=== PATIENT | male | born 1960 | race Caucasian/White ===

== ENCOUNTER → 2017-02-05 | Outpatient (CLI) | payer OTHER ==
[~2017-02-05] MED LIST: ASPI1TAB83 PO; ATOR-22 PO; CARV3.122 PO; CINN1CAP2 PO; DIGO0.122 PO; FENO145T26 PO; GLIM2TAB2 PO; LISI-729 PO; OMEGCAP2 PO; SITA50TA PO
[2017-02-05 12:59] LABS: ALT/SGPT 28 U/L (12-78); BLOOD UREA NITROGEN 17 mg/dl (7-18); CALCIUM 8.6 mg/dl (8.5-10.1); CARBON DIOXIDE 30 mmol/L (21-32); CHLORIDE 105 mmol/L (98-107); CREATININE 0.93 mg/dl (0.60-1.40); GLUCOSE 188 mg/dl (70-99); POTASSIUM 3.9 mmol/L (3.5-5.1); SODIUM 140 mmol/L (136-145)
[2017-02-05 13:04] LABS: CHOLESTEROL 132 mg/dl (0-200); CHOLESTEROL/HDL RATIO 4.1; HDL CHOLESTEROL 32 mg/dl; LDL CHOLESTEROL CALCULATED 77 mg/dl; TRIGLYCERIDES 113 mg/dl (0-150); VERY LOW DENSITY LIPOPROT CALC 23 mg/dl
[2017-02-05 13:21] LABS: ESTIMATED AVERAGE GLUCOSE 174 mg/dl; HA1C FLAG Normal (Normal)
== END | disposition home or self-care (01) ==
LOC: C.LABPBG 10:35
PROVIDERS: ATTEND Family Medicine
DX: E11.9 Type 2 diabetes mellitus without complications (principal)

== ENCOUNTER → 2017-07-20 | Outpatient (CLI) | payer OTHER ==
[2017-07-20 13:14] LABS: ESTIMATED AVERAGE GLUCOSE 177 mg/dl; HA1C FLAG Normal (Normal)
[2017-07-20 17:09] LABS: ALT/SGPT 43 U/L (12-78); BLOOD UREA NITROGEN 22 mg/dl (7-18); CARBON DIOXIDE 29 mmol/L (21-32); CHLORIDE 104 mmol/L (98-107); CHOLESTEROL 149 mg/dl (0-200); CREATININE 0.98 mg/dl (0.60-1.40); GLUCOSE 136 mg/dl (70-99); POTASSIUM 3.7 mmol/L (3.5-5.1); SODIUM 139 mmol/L (136-145); TRIGLYCERIDES 137 mg/dl (0-150); VERY LOW DENSITY LIPOPROT CALC 27 mg/dl
[2017-07-20 17:14] LABS: CHOLESTEROL/HDL RATIO 4.8; HDL CHOLESTEROL 31 mg/dl; LDL CHOLESTEROL CALCULATED 91 mg/dl
[2017-07-20 17:31] LABS: RATIO 4.3 mcg/mg (0-30.0)
== END | disposition home or self-care (01) ==
LOC: C.LABPBG 11:13
PROVIDERS: ATTEND Family Medicine
DX: E11.9 Type 2 diabetes mellitus without complications (principal)

== ENCOUNTER → 2017-10-22 | Outpatient (CLI) | payer OTHER ==
[2017-10-22 17:39] LABS: BASO % 0.3 %; BASO ABS # 0.02 K/uL (0-0.2); COMPLETE YES; EOS % 2.1 %; HEMATOCRIT 44.7 % (42-52); IG% 0.5 %; LYMPH % 29.4 %; LYMPH ABS # 1.84 K/uL (1.2-3.4); MEAN CELL VOLUME 89.4 fL (80-100); MEAN CORPUSCULAR HEMOGLOBIN 31.4 pg (25-34); MEAN CORPUSCULAR HGB CONC 35.1 g/dl (32-36); MEAN PLATELET VOLUME 9.4 fL (7.4-10.4); MONO % 7.2 %; NEUT % 60.5 %; PLATELET COUNT 186 K/uL (130-400); WHITE BLOOD COUNT 6.25 K/uL (4.8-10.8)
[2017-10-22 17:47] LABS: BLOOD UREA NITROGEN 17 mg/dl (7-18); BUN/CREATININE RATIO 17.8 (10-20); CALCIUM 8.9 mg/dl (8.5-10.1); CARBON DIOXIDE 26 mmol/L (21-32); CHLORIDE 107 mmol/L (98-107); CREATININE 0.95 mg/dl (0.60-1.40); GLUCOSE 163 mg/dl (70-99); SODIUM 140 mmol/L (136-145)
[2017-10-22 17:54] LABS: FERRITIN 336.5 ng/ml (8.0-388.0)
[2017-10-23 07:40] LABS: ESTIMATED AVERAGE GLUCOSE 143 mg/dl; HA1C FLAG Normal (Normal)
== END | disposition home or self-care (01) ==
LOC: C.LABPBG 13:14
PROVIDERS: ATTEND Internal Medicine Cardiovascular Disease
DX: E11.9 Type 2 diabetes mellitus without complications (principal); E83.119 Hemochromatosis, unspecified; I42.8 Other cardiomyopathies; Z51.81 Encounter for therapeutic drug level monitoring; Z79.899 Other long term (current) drug therapy

== ENCOUNTER 2025-03-20 11:37 | Inpatient (IN) ==
--- NOTE | 2025-03-20 12:15 | Emergency Department Note ---
Impression & Plan Pneumonia, CHF (congestive heart failure), NYHA class III, Shortness of breath ED Provider Note NAME: ANTONIO BLANCO AGE: 64 SEX: M : 1960 ARRIVES VIA: Walk-In INFORMANT: Patient ED PROVIDER(S): Frank Desai DO CHIEF COMPLAINT: Shortness of breath HPI: Patient is a 64-year-old male with a past medical history of CHF, diabetes, hypertension, idiopathic cardiomyopathy who presents to the ER for shortness of breath which has been getting worse for the past week. Patient denies any headache or change in vision. Shortness of breath significantly worsens with laying flat. He also admits to a cough which started within the past week. It is dry. No fevers. He does not really notice it when he is up moving around. No chest pain. No belly pain. No swelling of the calfs. Notes he did just recently start his Lasix back about 2 weeks ago when he saw cardiology again. He stopped taking it as he ran out of money. No dysuria, urgency or frequency. No other exacerbating or remitting factors. ADDITIONAL HISTORY OBTAINED: Per HPI Chronic Medical/Social Conditions Affecting Care: Per HPI PAST MEDICAL HISTORY:See Below PAST SURGICAL HISTORY:See Below FAMILY HISTORY:See Below SOCIAL HISTORY:See Below HOME MEDICATIONS:See Below ALLERGIES:See Below VITALS:See Below PHYSICAL EXAMINATION: GENERAL: Sitting up in bed, alert, well appearing, well nourished, no distress, non-toxic EYE EXAM: normal conjunctiva. PERRL and EOM's grossly intact. OROPHARYNX: no exudate, no erythema, lips, buccal mucosa, and tongue normal and mucous membranes are moist NECK: supple, no nuchal rigidity, no adenopathy, non-tender LUNGS: Clear to auscultation. Normal chest wall mechanics HEART: no murmurs, S1 normal and S2 normal ABDOMEN: abdomen soft, non-tender, normo-active bowel sounds, no masses, no rebound or guarding. UPPER EXTREMITIES: upper extremities are grossly normal. LOWER EXTREMITIES: No pitting edema. NEURO EXAM: Normal sensorium, cranial nerves II-XII grossly intact, normal speech, no gross weakness of arms, no gross weakness of legs. MEDICAL DECISION MAKING: Patient is a 64-year-old male who presents to the ER for the above-stated complaint. IV was established and blood work was obtained. Labs show no significant leukocytosis or anemia. BMP with slightly elevated glucose of 236. LFTs and bilirubin are fairly unremarkable. Troponin negative. BNP elevated at 1400. Lipase and Pro-Bill were normal. Chest x-ray with a right lower lobe infiltrate. Patient was given IV Rocephin and azithromycin. Updated bedside. Discussed case with the hospitalist admitted for further workup of his shortness of breath likely secondary to pneumonia and CHF. Consults/Care Managements Discussions: Per [facility] Triage Nursing notes reviewed. Limited review of prior medical records performed Vital Signs: reviewed and remarkable for no significant abnormalities Differential diagnosis: Differential diagnoses includes but is not limited to pneumonia, bronchitis, COPD/Asthma exacerbation, pneumothorax, pulmonary embolism, congestive heart failure, acute coronary syndrome ER treatment provided: See below Diagnostics interpreted by me include EKG and cardiac monitoring as listed below: -Cardiac Monitoring: An order was placed for continuous cardiac monitoring. The monitor shows a rate of 101 with sinus rhythm. -ECG: Sinus tachycardia rate of 102 Normal axis No PVCs ST depressions and T wave inversions in the lateral leads as well as the inferior leads QTc 505 -Laboratory studies:Interpreted by me as stated above in MDM and shown below. Imaging studies: Xrays: As interpreted by me: Portable AP upright 1 view of the chest shows right lower lobe infiltrate CTs show: none Procedures:none Critical Care: None Past Med/Surg History Problem List Shortness of breath (Acute) Pneumonia (Acute) History of colon polyps Encounter for pre-operative examination CHF (congestive heart failure), NYHA class III (Acute) Dyslipidemia Hemochromatosis Hypertension Type II diabetes mellitus Idiopathic cardiomyopathy CAD (coronary artery disease) Pulmonary HTN Ventricular tachycardia Cardiac defibrillator in place Implantable cardioverter-defibrillator (ICD) at end of battery life Medical History Pulmonary HTN CHF (congestive heart failure), NYHA class III Hypertension Ventricular tachycardia reason for pacer Type II diabetes mellitus Dyslipidemia Hemochromatosis CAD (coronary artery disease) follows with Dr. Villarreal Surgical History Hx of vasectomy History of colonoscopy History of tooth extraction History of arthroscopy left shoulder ICD (implantable cardioverter-defibrillator) in place 2009, replaced battery approx 1 year ago, follows with Dr. Villarreal, [employer], last checked approx 2 mos ago over phone Family History Father No problems noted. Mother Diabetes Social History Smoking Status: Never smoker Second Hand Exposure: No; Do You Dip or Chew Tobacco: No; Hx Alcohol Use: No Hx Substance Use: No Preferred Language: Maltese Communication Ability: Effective Visual Impairment: No Limitations Hearing Ability: Normal Recreation Therapist Required: No Beliefs That Will Affect Care: None marital status: Current Living Situation: Spouse current occupational status: employed Feels Safe at Home: Yes Childhood Exposure to Second-Hand Smoke: No Diet: regular Dental Care, Regularly: Yes Physical Activity Frequency: Daily Seatbelt Use: always Sunscreen Use: Yes Assistive Devices: Glasses Allergies Allergies Allergy/AdvReac Type Severity Reaction Status Date / Time No Known Allergies Allergy Verified 03/20/25 14:42 Home Meds Home Medications Medication Instructions Recorded Confirmed aspirin 81 mg chewable tablet 81 mg PO QAM 09/30/19 03/20/25 atorvastatin 40 mg tablet 40 mg PO QAM 03/20/25 03/20/25 furosemide 20 mg tablet 20 mg PO QAM 03/20/25 03/20/25 metoprolol succinate 25 mg 12.5 mg PO QAM 03/20/25 03/20/25 tablet,extended release 24 hr spironolactone 25 mg tablet 12.5 mg PO QAM 03/20/25 03/20/25 Previous Rx's Medication Instructions Recorded blood sugar diagnostic (OneTouch #100 ea 06/01/22 Verio test strips) blood-glucose meter (OneTouch #1 ea 06/01/22 Verio Meter) lancets (OneTouch UltraSoft #100 ea 06/01/22 Lancets) Results & Data (ED) Vital Signs Vital Signs - 24 hr 03/20/25 11:38 03/20/25 11:38 03/20/25 11:47 Temperature 36.0 C L Temperature Source Skin Pulse Rate 99 H Pulse Rate [Left Apical] Pulse Rate from SpO2 Sensor Respiratory Rate 20 Respiratory Effort / Characteristics Respiratory Depth Respiratory Pattern Blood Pressure 107/68 Blood Pressure [Right Arm] Blood Pressure Mean 81 Blood Pressure Mean [Right Arm] Pulse Oximetry 96 Oxygen Delivery Method Room Air Room Air Room Air Sepsis Recent Fever Within 48 Hours No Sepsis New/Unexplained Change in Mental Status N/A Sepsis Action Taken by Nursing No Action Required 03/20/25 12:37 03/20/25 12:48 03/20/25 13:03 Temperature Temperature Source Pulse Rate 102 H 90 88 Pulse Rate [Left Apical] Pulse Rate from SpO2 Sensor 92 H 89 Respiratory Rate 19 18 Respiratory Effort / Characteristics Respiratory Depth Respiratory Pattern Blood Pressure Blood Pressure [Right Arm] Blood Pressure Mean Blood Pressure Mean [Right Arm] Pulse Oximetry 96 94 Oxygen Delivery Method Sepsis Recent Fever Within 48 Hours Sepsis New/Unexplained Change in Mental Status Sepsis Action Taken by Nursing 03/20/25 14:00 03/20/25 15:36 Temperature Temperature Source Pulse Rate 93 H Pulse Rate [Left Apical] 89 Pulse Rate from SpO2 Sensor 91 H Respiratory Rate 23 21 Respiratory Effort / Characteristics Spontaneous Short of Breath Respiratory Depth Normal Respiratory Pattern Regular Blood Pressure 110/79 Blood Pressure [Right Arm] 95/72 L Blood Pressure Mean 89 Blood Pressure Mean [Right Arm] 79 Pulse Oximetry 94 95 Oxygen Delivery Method Room Air Sepsis Recent Fever Within 48 Hours Sepsis New/Unexplained Change in Mental Status Sepsis Action Taken by Nursing Laboratory Data 03/20/25 12:18 03/20/25 12:18 Lab Results 03/20/25 Range/Units 12:18 WBC 8.18 (4.8-10.8) K/ul RBC 5.35 (4.70-6.10) M/uL Hgb 16.1 (14.0-18.0) g/dl Hct 44.5 (42.0-52.0) % MCV 83.2 (80.0-100.0) fL MCH 30.1 (25.0-34.0) pg MCHC 36.2 H (32.0-36.0) g/dL RDW Std Deviation 37.8 (36.4-46.3) fL RDW Coeff of Hernandez 12.6 (11.5-14.5) % Plt Count 170 (130-400) K/uL MPV 9.3 L (9.4-12.4) fL Immature Gran % (Auto) 0.4 % Neut % (Auto) 76.3 % Lymph % (Auto) 14.7 % Dent % (Auto) 7.1 % Eos % (Auto) 1.0 % Baso % (Auto) 0.5 % Neut # (Auto) 6.25 (1.40-6.50) K/uL Lymph # (Auto) 1.20 (1.20-3.40) K/uL Dent # (Auto) 0.58 (0.11-0.59) K/uL Eos # (Auto) 0.08 (0.00-0.50) K/uL Baso # (Auto) 0.04 (0.00-0.20) K/uL Immature Gran # (Auto) 0.03 (0.01-0.20) K/uL Sodium 138 (136-145) mmol/L Potassium 3.7 (3.5-5.1) mmol/L Chloride 106 (98-107) mmol/L Carbon Dioxide 25 (21-32) mmol/L Anion Gap 7 (3-11) BUN 16 (6-23) mg/dl Creatinine 0.73 (0.6-1.4) mg/dl Est Cr Clr Drug Dosing 94.3 ml/min eGFR 101.60 BUN/Creatinine Ratio 21.9 H (10-20) Glucose 236 H (70-99(Fasting)) mg/dl Calcium 8.9 (8.6-10.3) mg/dl Total Bilirubin 2.0 H (0.2-1.0) mg/dl AST 12 L (13-39) U/L ALT 16 (7-52) U/L Alkaline Phosphatase 85 (34-104) U/L Troponin I High Sens 19.0 (0-20) pg/ml C-Reactive Protein < 0.50 (0-0.5) mg/dl B-Natriuretic Peptide 1454 H (0-100) pg/ml Total Protein 6.3 (6.0-8.3) gm/dl Albumin 3.9 (3.4-5.0) gm/dl Globulin 2.4 L (2.5-4.0) gm/dl Albumin/Globulin Ratio 1.6 (0.9-2) Lipase 13 (11-82) U/L Procalcitonin < 0.02 (0-0.5) ng/ml Administered Medications Discontinued Medications Azithromycin (Azithromycin 250 Mg Tab) 500 mg PO NOW ONE Stop: 03/20/25 13:32 Last Admin: 03/20/25 13:44 Dose: 500 mg Documented By: AXELW Ceftriaxone Sodium (Rocephin) 2,000 mg in 50 mls @ 100 mls/hr IV NOW STA Stop: 03/20/25 14:00 Last Infusion: 03/20/25 15:31 Dose: Infused Documented By: [facility] Admin: 03/20/25 13:44 Dose: 100 mls/hr Documented By: AXELW Imaging Data Radiologist's Impression: Chest X-Ray 03/20/25 11:56 XR chest 1V portable CLINICAL HISTORY: Chest pain, nonspecific COMPARISON STUDY: 03/29/2016 FINDINGS: Stable left pacemaker. There is increased cardiomegaly with mild pulmonary vascular congestion. There is interval hazy opacity in the lung bases with blunting of the left costophrenic angle. No pneumothorax. IMPRESSION: CHF with small bilateral pleural effusions and associated lower lung consolidation. ACT 112: Negative or not required by law. Electronically signed by: Lowell Almanza M.D. 03/20/2025 12:57 PM Discharge Plan Visit Data Chief Complaint: Shortness of Breath/Dyspnea Stated Complaint: SHORT OF BREATH ED Provider: Frank Desai Discharge Problem: Pneumonia, CHF (congestive heart failure), NYHA class III, Shortness of breath Patient Disposition: Admitted As Inpatient Condition: Fair Discharge Instructions Interventions: ED Discharge Assessment Last Done: 03/20/25 15:44 Prescriptions Prescriptions: No Action (DME) blood-glucose meter [OneTouch Verio Meter] [facility] See Rx Instructions .Route Qty: 1 0RF Rx Instructions: Test BID, fasting glucose in AM, and before evening meal (DME) OneTouch Verio test strips Strip See Rx Instructions .Route Qty: 100 3RF Rx Instructions: Test glucose BID, fasting AM and before evening meal (DME) lancets [OneTouch UltraSoft Lancets] Misc See Rx Instructions .Route Qty: 100 3RF Rx Instructions: Test glucose BID, fasting AM and before evening meal aspirin 81 mg Tablet,Chewable 81 mg PO QAM spironolactone 25 mg tablet 12.5 mg PO QAM furosemide 20 mg tablet 20 mg PO QAM metoprolol succinate 25 mg tablet extended release 24 hr 12.5 mg PO QAM atorvastatin 40 mg tablet 40 mg PO QAM Discharge Problem: Pneumonia Qualifiers: Pneumonia type: due to unspecified organism Laterality: unspecified laterality Lung location: unspecified part of lung Qualified Code(s): J18.9 - Pneumonia, unspecified organism CHF (congestive heart failure), NYHA class III Qualifiers: Congestive heart failure type: unspecified Qualified Code(s): I50.9 - Heart failure, unspecified
[2025-03-20 12:37] LABS: Basophils # (auto) 0.04 K/uL (0.00-0.20); Basophils % (auto) 0.5 %; Eosinophils # (auto) 0.08 K/uL (0.00-0.50); Hematocrit (blood only) 44.5 % (42.0-52.0); Hemoglobin 16.1 g/dl (14.0-18.0); Immature Granulocytes # (auto) 0.03 K/uL (0.01-0.20); Immature Granulocytes % (auto) 0.4 %; Lymphocytes % (auto) 14.7 %; Mean Corpuscular Hemoglobin 30.1 pg (25.0-34.0); Mean Corpuscular Hgb Conc 36.2 g/dL (32.0-36.0); Mean Corpuscular Volume 83.2 fL (80.0-100.0); Mean Platelet Volume 9.3 fL (9.4-12.4); Monocytes # (auto) 0.58 K/uL (0.11-0.59); Monocytes % (auto) 7.1 %; Neutrophils # (auto) 6.25 K/uL (1.40-6.50); Neutrophils % (auto) 76.3 %; Platelet Count 170 K/uL (130-400); RDW Coefficient of Variation 12.6 % (11.5-14.5); RDW Standard Deviation 37.8 fL (36.4-46.3); Red Blood Count 5.35 M/uL (4.70-6.10); White Blood Count 8.18 K/ul (4.8-10.8)
[2025-03-20 12:55] LABS: Alanine Aminotransferase 16 U/L (7-52); Albumin Globulin Ratio 1.6 (0.9-2); Albumin Level 3.9 gm/dl (3.4-5.0); Alkaline Phosphatase 85 U/L (34-104); Anion Gap 7 (3-11); Aspartate Aminotransferase 12 U/L (13-39); BUN Creatinine Ratio 21.9 (10-20); Blood Urea Nitrogen 16 mg/dl (6-23); Calcium 8.9 mg/dl (8.6-10.3); Carbon Dioxide 25 mmol/L (21-32); Chloride 106 mmol/L (98-107); Creatinine Clr Calc Pharmacy 94.3 ml/min; Globulin 2.4 gm/dl (2.5-4.0); Glucose 236 mg/dl (70-99(Fasting)); Lipase 13 U/L (11-82); Potassium 3.7 mmol/L (3.5-5.1); Sodium 138 mmol/L (136-145); Total Protein 6.3 gm/dl (6.0-8.3)
--- NOTE | 2025-03-20 12:59 | XRay Report ---
XR chest 1V portable CLINICAL HISTORY: Chest pain, nonspecific COMPARISON STUDY: 03/29/2016 FINDINGS: Stable left pacemaker. There is increased cardiomegaly with mild pulmonary vascular congest ion. There is interval hazy opacity in the lung bases with blunting of the left costophrenic angle. N o pneumothorax. IMPRESSION: CHF with small bilateral pleural effusions and associated lower lung consolidation. ACT 112: Negative or not required by law. Electronically signed by: Lowell Almanza M.D. 03/20/2025 12:57 PM
[2025-03-20] MEDS: AZITHROMYCIN 250 MG TAB PO ONE (13:44)
[2025-03-20] MEDS: cefTRIAXone SODIUM 2,000 MG/50 ML BAG IV STA (13:44)
--- NOTE | 2025-03-20 14:20 | History & Physical Report ---
Date of Service March 20, 2025 Assessment & Plan (1) CHF (congestive heart failure), NYHA class III: (2) Type II diabetes mellitus: (3) Hypertension: (4) Idiopathic cardiomyopathy: History of Present Illness Chief Complaint: Shortness of breath Primary Care Provider: Jazmin Ariza MD patient is a very pleasant 64-year-old male who notes about a week of progressive and unremitting shortness of breath. He noted about a week ago for starting to feel more short of breath and air hunger, hyperventilation like he could not get enough air. Seems to have more orthopnea, and questionably dyspnea on exertion. No fevers chills or sweats. Weight has been fluctuating and about a 3 to 4 pound range but no overt weight gain. No peripheral edema. He had been off of medications for quite a while, finally was able to follow-up with his primary cardiology team about a month ago and started back on CHF meds. He also relates being sick off and on for a lot of the spring. Allergies Allergy/AdvReac Type Severity Reaction Status Date / Time No Known Allergies Allergy Verified 12/14/22 15:37 Home Medications Medication Instructions Recorded Confirmed Type digoxin 125 mcg (0.125 mg) tablet 125 mcg PO QAM 07/23/19 12/14/22 History aspirin 81 mg chewable tablet 81 mg PO QAM 09/30/19 12/14/22 History carvedilol 6.25 mg tablet 6.25 mg PO BID 09/30/19 12/14/22 History omega [id number]-fish oil 1,000 mg 4,000 cap PO QAM 09/30/19 12/14/22 History (120 mg-180 mg) capsule (Fish Oil) lisinopril 10 mg tablet 10 mg PO QAM 05/02/22 12/14/22 History blood sugar diagnostic (OneTouch #100 ea 06/01/22 12/14/22 Rx Verio test strips) blood-glucose meter (OneTouch #1 ea 06/01/22 12/14/22 Rx Verio Meter) lancets (OneTouch UltraSoft #100 ea 06/01/22 12/14/22 Rx Lancets) empagliflozin 10 mg tablet 10 mg PO QAM #90 tabs 10/24/22 12/14/22 Rx (Jardiance) glimepiride 4 mg tablet 4 mg PO QAM #90 tabs 01/25/23 Rx atorvastatin 40 mg tablet See Rx Instructions .Route 01/28/24 Rx .COMPLEX #90 tabs Past Med/Surg History Problem List History of colon polyps Encounter for pre-operative examination CHF (congestive heart failure), NYHA class III Dyslipidemia Hemochromatosis Hypertension Type II diabetes mellitus Idiopathic cardiomyopathy CAD (coronary artery disease) Pulmonary HTN Ventricular tachycardia Cardiac defibrillator in place Implantable cardioverter-defibrillator (ICD) at end of battery life Medical History Pulmonary HTN CHF (congestive heart failure), NYHA class III Hypertension Ventricular tachycardia reason for pacer Type II diabetes mellitus Dyslipidemia Hemochromatosis CAD (coronary artery disease) follows with Dr. Villarreal Surgical History Hx of vasectomy History of colonoscopy History of tooth extraction History of arthroscopy left shoulder ICD (implantable cardioverter-defibrillator) in place 2009, replaced battery approx 1 year ago, follows with Dr. Villarreal, [employer], last checked approx 2 mos ago over phone Family History Father No problems noted. Mother Diabetes Social History Smoking Status: Never smoker Second Hand Exposure: No; Do You Dip or Chew Tobacco: No; Hx Alcohol Use: No Hx Substance Use: No Preferred Language: Omani Communication Ability: Effective Visual Impairment: No Limitations Hearing Ability: Normal Cut Off Tender Glass Required: No Beliefs That Will Affect Care: None marital status: Current Living Situation: Spouse current occupational status: employed Feels Safe at Home: Yes Childhood Exposure to Second-Hand Smoke: No Diet: regular Dental Care, Regularly: Yes Physical Activity Frequency: Daily Seatbelt Use: always Sunscreen Use: Yes Assistive Devices: Glasses Review of Systems Review of Systems: All systems reviewed & are unremarkable except as noted in HPI & below Physical Exam Physical Exam: In general he is awake and alert pleasant no distress. HEENT normocephalic atraumatic mucous membranes moist. Cardio is regular without rubs murmurs or gallops. Lungs show left and maybe faint right base rales that clear going up. Abdomen is soft nondistended nontender. Mild JVD and HJR. Extremities without cyanosis clubbing or edema no calf tenderness. Skin without rashes pallor or icterus. Neuro/cranial nerves II through XII are grossly intact gross motor and sensory intact. Mental status shows good recent remote recall. his chest x-ray to me looks most consistent with CHF. Cardiology notes increased cardiomegaly pulmonary vascular congestion and a hazy opacity in the lung bases with blunting of the left costophrenic angle and in the conclusion calling it bilateral pleural effusions and associated lower lung consolidation. It is a 1 view AP. At [facility], he had an echocardiogram on February 18, [address] VillarrealLV cavity size is severely enlarged. LV wall thickness is normal. There is severe diffuse left ventricular hypokinesis. The qualitative LV ejection fraction is less than 20%. The LV diastolic function is severely abnormal (grade 3). The left atrium is severely enlarged. Mild mitral regurgitation is present. Mild tricuspid regurgitation is present. Moderate pulmonary hypertension is present. In comparison from his previous echocardiogram in July 2021, they note substantial decline in overall systolic function. EKG is sinus with LVH and flipped T waves in V5 and V6 that is probably repolarization abnormality from the LVH as well as flipped T's in 1 and aVL with a decent amount of artifact in those leads. No ST elevations or overt depressions. Troponin is 19. Results & Data Results & Data Vital Signs (Past 12 Hours) Vital Signs Temp Pulse Resp BP Pulse Ox O2 Del Method 03/20/25 12:37 102 H 03/20/25 11:47 96.8 F L 99 H 20 107/68 96 Room Air 03/20/25 11:38 Room Air 03/20/25 11:38 Room Air Supervising Physician Co-Signing Physician Notes #Shortness of breath - seems most consistent with acute on chronic systolic CHF (acute on chronic HFrEF) with idiopathic cardiomyopathy (he notes having had a heart infection years ago and his heart has been weak ever since). He had been off of medications for quite a while and started on about a month ago, and I also certainly harbor suspicion about sodium ingestion leading to fluid retention. The alternative differential would be a pneumonia given that he does have asymmetric findings on x-ray and exam, but the preponderance of evidence is more fitting with CHF. He has been given azithromycin/ceftriaxone in the ER, but I will hold off on further antibiotics unless something more overtly infectious arises on serial exams/serial history/vitals; to clarify further, I do have a CRP and procalcitonin pending. #Acute on chronic HFrEF - diurese as best as possibleblood pressure does tend to run a bit on the low side so we will start with 20 mg of Lasix. If needed, could hold or reduce his carvedilol and lisinopril to allow more room for more aggressive diuresis, but for now we will keep him on both of these home meds and follow for response. Continue his Jardiance. Educate on sodium restriction. Ideally if his blood pr essure can tolerate it and we can find a way to make it affordable, would change his lisinopril over to Entresto #type 2 diabetes - continue Jardiance and glimepiride. Fingersticks, supplemental insulin if needed. Check A1c. #DVT prophylaxisLovenox #dyslipidemiacontinue atorvastatin #pulmonary hypertensionalmost certainly secondary to his severe LV failure. Admit to [facility] telemetry, [facility] hospitalist service. 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 PG Care Time/CCT Total # of Minutes Spent Total Time Spent with Patient: Total time spent is greater than 50% in coordination of care (as documented) at patient's floor/unit and/or counseling patient: Coding Level of Care Code 45069 INT INP/OBS CARE 3/75MIN Diagnoses CHF (congestive heart failure), NYHA class III I50.9 Type II diabetes mellitus E11.9 Hypertension I10 Idiopathic cardiomyopathy I42.8
[2025-03-20 14:23] LABS: C Reactive Protein < 0.50 mg/dl (0-0.5)
--- NOTE | 2025-03-20 15:00 | Electrocardiogram Report ---
Test Reason : Blood Pressure : */* mmHG Vent. Rate : 102 BPM Atrial Rate : 102 BPM P-R Int : 144 ms QRS Dur : 100 ms QT Int : 388 ms P-R-T Axes : 56 13 103 degrees QTcB Int : 505 ms Sinus tachycardia Possible Left atrial enlargement Left ventricular hypertrophy with repolarization abnormality Abnormal ECG Confirmed by Tate Jones ([id number]) on 03/20/2025 3:00:42 PM Referred By: REFERRED SELF Confirmed By: Tate Jones
[2025-03-20] MEDS ORDERED: MAGNESIUM HYDROXIDE SUSP 30 ML UDC PO PRN (16:17)
[2025-03-20] MEDS ORDERED: POLYETHYLENE (MIRALAX) 17 GM PACK PO PRN (16:17)
[2025-03-20] MEDS ORDERED: ALUMINUM/MAGNESIUM SUSP 30 ML UDC PO PRN (16:17)
[2025-03-20] MEDS ORDERED: ACETAMINOPHEN 325 MG TAB PO PRN (16:17)
[2025-03-20] MEDS ORDERED: ONDANSETRON INJ 2 MG/ML 2 ML VIAL IV PRN (16:17)
[2025-03-20] MEDS: ENOXAPARIN INJ 40 MG/0.4 ML SYR SQ SCH (17:34)
[2025-03-20] MEDS: FUROSEMIDE INJ 20 MG/2 ML VIAL IV ONE (17:34)
[2025-03-20] MEDS: POTASSIUM CHLORIDE CRTAB 20 MEQ TABCR PO STA (17:34)
[2025-03-20] MEDS: INSULIN ASPART PER UNIT CHARGE SC SCH (18:17)
[2025-03-20] MEDS: carvediloL 6.25 MG TAB PO SCH (20:49)
[2025-03-20] MEDS: MELATONIN 3 MG TAB PO PRN (20:49)
--- OUTSIDE RECORDS SUMMARY | 2025-03-21 00:17 | External Medical Summary | Summary of Care ---
Author Name Unknown Organization [facility] Address [address] [facility] [place] [address] Phone [phone] Care Team Providers Care Mechanic'S Assistant Name Role Phone Jazmin Ariza MD Primary Care Provider Reason for Visit * Reason Comments Congestive Heart Failure Encounter Details Date Type Department Care Team (Late st Contact Info) Description 03/19/2025 9:30 AM EDT Telemedicine Cardiology, [facility] [address] [place] [phone] [facility] Cardiology [facility] [address] [facility] [address] Idiopathic cardiomyopathy (HCC)*; PVC (premature ventricular contraction) Allergies No known active allergiesdocumented as of this encounter (statuses as of 03/19/2025) Medications ASPIRIN 81 MG PO TABS once daily Active ONETOUCH DELICA LANCETS MISCIndications:LV (left ventricular) mural thrombus As directed - once or twice daily DX: 250.00 1 [address] 11/20/19 12 Active ONETOUCH ULTRA BLUE STRPIndications:LV (left ventricular) mural thrombus TEST ONCE TO TWICE DAILY DX 250.00 100 Strip 5 12/24/19 13 Active Spironolactone 25 MG Oral Tablet (Aldactone)Indicat ions:DCM (dilated cardiomyopathy) (HCC),Heart failure, systolic, with acute decompensation (HCC) Take 0.5 Tablets by mouth in the morning. 15 Tablet 5 02/19/20 25 Active Furosemide 20 MG Oral Tablet (Lasix)Indications :Idiopathic cardiomyopathy (HCC),DCM (dilated cardiomyopathy) (HCC),Heart failure, systolic, with acute decompensation (HCC) Take 1 Tablet by mouth in the morning. 31 Tablet 5 02/19/20 25 Active Atorvastatin Calcium 40 MG Oral Tablet (Lipitor)Indicatio ns:Hyperlipidemia with target LDL less than 100 Take 1 Tablet by mouth daily. 100 Tablet 3 02/21/20 25 Active Metoprolol Succinate ER 25 MG Oral Tablet Extended Release 24 Hour (Toprol XL)Indications:Idi opathic cardiomyopathy (HCC),PVC (premature ventricular contraction) Take 1 Tablet by mouth in the morning. 30 Tablet 5 03/19/20 25 Active Glimepiride 4 MG Oral Tablet (Amaryl) Take 1 Tablet by mouth daily before breakfast. 03/19/20 25 Active Metoprolol Succinate ER 25 MG Oral Tablet Extended Release 24 Hour (Toprol XL)Indications:Idi opathic cardiomyopathy (HCC),PVC (premature ventricular contraction) Take 0.5 Tablets by mouth in the morning. 15 Tablet 5 02/19/20 25 025 Discontinued documented as of this encounter (statuses as of 03/19/2025) Active Problems Problem Noted Date Diagnosed Date Hyperlipidemia with target LDL less than 100 Overview (03/06/2016): ICD-10 update of inactive term Automatic implantable cardioverter-defibrillator in situ 11/02/2010 Benign neoplasm of colon 09/05/2010 Overview (10/17/2010): adenomatous polyp, f/u in one year Other hemochromatosis 08/16/2010 Type 2 diabetes mellitus wit h hemoglobin A1c goal of less than 8.0% 04/18/2010 Overview (03/02/2016): ICD-10 update of inactive term Cardiomegaly 03/17/2010 Idiopathic cardiomyopathy 03/17/2010 Cardiomegaly 03/08/2010 Generalized osteoarthritis 08/17/2009 Family history of diabetes mellitus 08/17/2009 documented as of this encounter (statuses as of 03/19/2025) Resolved Problems Problem Noted Date Diagnosed Date Resolved Date LV (left ventricular) mural thrombus 03/17/2010 03/26/2012 Certain sequelae of myocardial infarction 03/14/2010 03/17/2010 Overview (02/04/2025): ICD-10 Update of Inactive Term documented as of this encounter (statuses as of 03/19/2025) Immunizations Name Administration Dates Next Due HEP A - Hepatitis A (Adult > 18 yrs) 04/25/2011, 07/20/2010 Hepatitis B, 20+ yrs 05/01/2014,10/31/2013 Pneumococcal Polysaccharide PPV23 (Pneumovax) 12/20/2010 Seasonal Influenza Vac., MDV , IM, 0.5 mL (Fluzone) 08/18/2013,08/19/2012,08/19/2011,08/17,08/05/2009 TD - Tetanus/Diptheria (ADULT) 04/05/2002 TDAP, Age 7 and older, IM (Adacel) 12/20/2010 documented as of this encounter Social History Tobacco Use Types Packs/Day Years Used Date Smoking Tobacco: Never Smokeless Tobacco: Never Alcohol Use Standard Drinks/Week Comments Not Currently 0 (1 standard drink = 0.6 oz pur e alcohol) Sex and Gender Information Value Date Recorded Sex Assigned at Not on file Legal Sex Male 7:15 AM EST Gender Identity Not on file Sexual Orientation Not on file documented as of this encounter Progress Notes * Patti Steve, [facility] - 03/19/2025 9:28 AM EDT Images from the original note were not included. Medication Therapy Disease Management - Heart Failure History of Presenting Illness After connecting to the patient via telephone, the patient was identified by name and date of . Patient was then informed that this was a telephone call only visit. The patient agreed to participate. Visit Disposition: Routine follow-up Total call duration was 25 minutes. Sunday Faith, identified by name and date of , is a 64 year old male presents to the Heart Failure [facility] Clinic for initial visit. Chief Complaint Patient presents with Congestive Heart Failure History Referred by Sunday Peralta for GDMT/HF HPI Contacted patient and explained [facility] Cardiology role to patient. He is currently taking all medications as prescribed. Does have a history of non compliance. Reports his weight has been stable. Denies any edema. Does report SOB, even at rest. He has not had follow up lab work since starting Lasix and Aldactone. Works at [employer] and prefers to have done there. He reports about 10 years ago he had blood draws for high iron levels but has not had any since. ICD: Single chamber implantable cardioverter defibrillator -10/2010 Current Medications Diuretic: Furosemide 20 mg QD-started 02/18/25 Beta-Bobby: Metoprolol ER 25 --Take 12.5 mg QD-started 02/18/25 SGLT2i: Spironolactone 25 mg---Take 12.5 mg QAM-started 02/18/25 Lipid Therapy: Atorvastatin 40 mg QD Other: Aspirin 81 mg QD Review of Systems Weight gain of 2 - 3 pounds over 24 hours? No Weight gain of 5 pounds over 3 days? No Symptoms: dyspnea at rest, dyspnea with exertion, no edema, no light-headedness, no dizziness Objective Current Vitals There were no vitals filed for this visit. Past Vitals BP Readings from Last 3 Encounters: 02/18/25 142/60 06/14/23 130/80 02/10/21 110/64 Pulse Readings from Last 3 Encounters: 02/18/25 76 06/14/23 68 02/10/21 68 Wt Readings from Last 3 Encounters: 02/18/25 65.5 kg (144 lb 8 oz) 06/14/23 70.3 kg (155 lb) 02/10/21 73.3 kg (161 lb 8 oz) Patient Reported Vitals 145 lbs today 129/84 Oxygen 94-96% Unsure of pulse Patient Reported Blood Glucose Running in 200s Denies any low readings Last EF LEFT VENTRICULAR EJECTION FRACTION (%) Date Value 08/02/2021 49 05/27/2019 50 Labs HEMOGLOBIN A1C - [facility] Date/Time Value Ref Range Status 02/18/2025 12:04 PM 10.6 (H) 4.0 - 5.6 % Final Comment: The use of HbA1c to monitor glycemic status is based on normal hemoglobin and HbA composition. Thistest should not be used in patients with abnormal hemoglobin that affects the half life of the red blood cell or the in vivo glycation rates. 10/31/2013 09:01 AM 7.1 (H) 3.4 - 6.4 % Final 05/01/2013 08:40 AM 6.7 (H) 3.4 - 6.4 % Final 10/30/2012 08:10 AM 6.2 3.4 - 6.4 % Final Recent Labs Units 02/18/25 1204 BUN - [facility] mg/dL 16 CREATININE - [facility] mg/dL 0.7 ESTIMATED GLOMERULAR FILTRATION RATE - [facility] mL/min >90 Creatinine clearance cannot be calculated (Unknown ideal weight.) Recent Labs Units 02/18/25 1204 POTASSIUM - [facility] mmol/L 4.1 Recent Labs Units 02/18/25 1204 CO2 - [facility] mmol/L 28 Results for orders placed or performed in visit on 10/31/13 LIPID PANEL Result Value Ref Range HOURS FASTING PATIENT NOT FASTING hours Triglycerides 246 (H) <200 mg/dL Cholesterol 141 <200 mg/dL HDL Cholesterol 33 (L) >39 mg/dL Cholesterol-HDL Ratio 4.3 LDL Cholesterol 59 0 - 129 mg/dL Results for orders placed or performed in visit on 10/20/11 LIPID PANEL Result Value Ref Range HOURS FASTING 12 hours Triglycerides 316 (H) <200 mg/dL Cholesterol 161 <200 mg/dL HDL Cholesterol 32 (L) 40 - 59 mg/dL Cholesterol-HDL Ratio 5.0 LDL Cholesterol 66 0 - 129 mg/dL Results for orders placed or performed in visit on 08/03/11 LIPID PANEL Result Value Ref Range HOURS FASTING 12 hours Triglycerides 629 (H) <200 mg/dL Cholesterol 165 <200 mg/dL HDL Cholesterol 31 (L) 40 - 59 mg/dL Cholesterol-HDL Ratio 5.3 Results for orders placed or performed in visit on 12/03/18 LIPID PANEL WITH DIRECT LDL IF TG ABOVE 150 MG/DL Result Value Ref Range TRIGLYCERIDES-OUTSIDE LAB 98 0 - 150 MG/DL CHOLESTEROL-OUTSIDE LAB 150 0 - 200 MG/DL HDL-OUTSIDE LAB 37 MG/DL CHOL/HDL RATIO-OUTSIDE LAB 4 LDL (CALCULATED)-OUTSIDE LAB 93 MG/DL Results for orders placed or performed in visit on 12/08/14 LIPID PANEL WITH DIRECT LDL IF TG ABOVE 400 MG/DL Result Value Ref Range TRIGLYCERIDES-OUTSIDE LAB 87 0 - 150 mg/dl CHOLESTEROL-OUTSIDE LAB 134 0 - 200 mg/dl HDL-OUTSIDE LAB 36 CHOL/HDL RATIO-OUTSIDE LAB 3.7 LDL (CALCULATED)-OUTSIDE LAB 81 <130 mg/dL LDL (DIRECT MEASURE)-OUTSIDE LAB 90 <100 mg/dl Assessment/Plan Assessment/Plan Patient presents to clinic today and the role of the [facility] pharmacist was introduced. I reviewed patient's medication history. Patient was educated on the disease state of heart failure. I explained the importance of optimizing patient's GDMT (improve symptoms for better quality of life, decrease hos pitalizations and live longer). Heart Failure Classification: HFrEF Most Recent EF: <20% 02/18/25 General Assessment 1. HFrEF -Idiopathic cardiomyopathy -Referred for diagnostic angiography, not yet set up -Needs follow up BMP after starting lasix and aldactone; will obtain this ; order faxed to [facility] -Increase Metoprolol Er 25 mg QD 2. Uncontrolled Hyperlipidemia -Target LDL <70 -Recently restarted statin; repeat lipid panel May 2025 3. Uncontrolled Type 2 Diabetes -Target HbA1c <7% -No follow up scheduled with PCP; advised him to do so PING -Would benefit from GLP1 -Hesitant to start SGLT2 with current high BG due to risk of infection 4. Hemochromatosis -Not discussed today; needs follow up 5. Hx SVT/Non sustained VT -Increase metoprolol Er 25 mg QD Education Provided - Limit sodium to no more than 2,000 mg daily - Limit fluids to 64 oz daily - Weights daily. For weight gain 3 lbs or more within 24 hours or 5 lbs in 3 days, call the HF Clinic - Contact clinic if any increase in symptoms such as lightheadedness, dizziness, increase in shortness of breath, extreme fatigue, etc. Recommendations Continue Lasix 20 mg QD Increase Metoprolol Er 25 mgQD - Currently Titrating Continue Spironolactone 12.5 mgQD - Currently Titrating Labs Due: BMP due now; order faxed to [facility] Follow-Up: Sunday; plan to start Entresto pending BMP 03/24/2025 I spent a total of 30-39 minutes (exact time 30 mins) on the date of service in preparation, delivery, and documentation of the care provided to Sunday A Vianney excluding any time spent in the performance of separately billed services or time spent by another provider/QHP. Patti Manning [facility] Clinical Pharmacist - Market Analysis Director Medication Therapy Management Clinic 03/19/2025 - 10:00 AM documented in this encounter Plan of Treatment Upcoming Encounters Date Type Department Care Team (Late st Contact Info) Description 03/24/2025 9:30 AM EDT Telemedicine Cardiology, [facility] [address] [place] [address] [facility] Cardiology [facility] [address] [place] [address] 03/27/2025 2:30 PM EDT Office Visit Cardiology, [facility] [address] [place] [phone] Sunday Peralta PA-C [address] [place] [address] Scheduled Orders Name Type Priority Associated Diagnoses Orde r Schedule BASIC METABOLIC PANEL Lab Routine Idiopathic cardiomyopathy (HCC) Expected: 03/19/2025, Expires: 03/19/2026 Health Maintenance Due Date Last Done Comments Depression Screening 1972 HIV Screening 1975 Hepatitis C Screening 1978 Cologuard 2005 Fecal Occult Blood Test 2005 Sigmoidoscopy 2005 Zoster Vaccines (1 of 2) 2010 Pneumococcal Vaccine: 50+ Years (2 of 2 - PCV) 12/20/2011 12/20/2010 Diabetic Eye Exam 09/24/2013 09/24/2012, (Done elsewhere) Hepatitis B Vaccine (3 of 3 - 19+ 3-dose series) 06/26/2014 05/01/2014, 10/31/2013 Albumin/Creatinine Ratio 10/31/201410/31/ 013, 10/25/2012, 08/31/2011, Additional history exists Diabetic Foot Exam 10/31/2014 10/31/2013, 1 12/25/2011, 10/20/2011, Additional history exists Colonoscopy 03/22/2019 03/22/2016, 04/0 11/2013, 12/14/2011, Additional history exists Colorectal Cancer Screening 03/22/2019 DTap/Tdap Vaccines (2 - Td or Tdap) 12/20/2020 12/20/2010, 04/05/2002 COVID-19 Vaccine ( season) 2024 Influenza Vaccine (FLU shot) (Season Ended) 2025 08/18/2013, 08/19/2012, 08/19/2011, Additional history exists HbA1c 08/20/2025 02/18/2025, 12/07, 03/21/2019, Additional history exists GFR 02/18/2026 02/18/2025, 12/07, 03/21/2019, Additional history exists Lipid Panel 02/18/2030 02/18/2025, 12/07, 03/21/2019, Additional history exists HPV (Gardasil) Vaccine Aged Out No lo nger eligible based on patient's age to complete this topic MENINGOCOCCAL (MENACTRA/MENVEO) Aged Out No longer eligible based on patient's age to complete this topic Meningitis B Vaccine (Bexsero/Trumemba) Aged Out No longer eligible based on patient's age to complete this topic documented as of this encounter Medical Devices Not on filedocumented as of this encounter Visit Diagnoses Diagnosis Idiopathic cardiomyopathy (HCC)- Primary Other primary cardiomyopathies PVC (premature ventricular contraction) Other premature beats documented in this encounter Advance Directives * Full Code (Latest Code Status on File) Date Activated Date Inactivated Comments 10/25/2010 5:26 PM 10/26/2010 1:50 PM This order reflects the patients wishes and were consensually agreed upon. Question Answer Comments Discussion of Advance Directives occurred with: Not Discussed Does the patient have a Living Will? No Does the patient have Health Care Power of Attor annette? No Care Teams Mechanic'S Assistant Relationship Specialty Start Date End Date Jazmin Ariza MD [address] [place] [address] PCP - General Family Medicine 07/07/15 documented as of this encounter
--- OUTSIDE RECORDS SUMMARY | 2025-03-21 00:17 | External Medical Summary | Summary of Care ---
Author Name Unknown Organization [facility] Address [address] [facility] [place] [address] Phone [phone] Care Team Providers Care Physicians Assistant Name Role Phone Jazmin Ariza MD Primary Care Provider Encounter Details Date Type Department Care Team (Late st Contact Info) Description 03/19/2025 Telephone Cardiology, [facility] [address] [place] [phone] [facility] [address] [place] [address] Allergies No known active allergiesdocumented as of [...] on file documented as of this encounter Miscellaneous Notes * Telephone Encounter - Patti Jessica RPh - 03/19/2025 9:31 AM EDT Please ignore, pt returned call and I was able to talk with him! * Telephone Encounter - Patti Jessica RPh - 03/19/2025 9:19 AM EDT PHARMACY CHRONIC DISEASE MANAGEMENT - Heart Failure Patient Outreach Attempt: #3 Pharmacist called and unable to reach patient regarding referral for Heart Failure. Due to patient having 3 consecutive no show/cancelled appointments [facility] will discharge patient at this time. A new referral can be entered for Cardiology MTD services if they are required in the future. Thank you for allowing [facility] to participate in patient's care! When you talk to him on 03/27, if he is still willing to see me, he can reschedule with at checkout. Patti Jessica Pharm D Clinical [facility] Pharmacist Cardiology 03/19/2025,9:19 AM documented in this encounter Plan of Treatment Upcoming Encounters Date Type Department Care Team (Late st Contact Info) Description 03/24/2025 9:30 AM EDT Telemedicine Cardiology, [facility] [address] [place] [phone] Pranay [facility] Clinic Cardiology [facility] [address] [place] [address] 03/27/2025 2:30 PM EDT Office Visit Cardiology, [facility] [address] [place] [phone] Sunday Peralta PA-C [address] [place] [address] Health Maintenance Due Date Last Done Comments [...] 3-dose series) 06/26/2014 05/01/2014, 10/31/2013 Albumin/Creatinine Ratio 10/31/201410/31/2 013, 10/25/2012, 08/31/2011, Additional history exists Diabetic [...] Not on filedocumented as of this encounter Advance Directives * Full Code [...] Power of Attor annette? No Care Teams Physicians Assistant Relationship Specialty Start Date End Date Jazmin Ariza MD [address] [place] [address] PCP - General Family Medicine 07/07/15 documented as of this encounter
--- OUTSIDE RECORDS SUMMARY | 2025-03-21 00:17 | External Medical Summary | Summary of Care ---
Author Name Unknown Organization [facility] Address [address] [facility] [place] [address] Phone [phone] Care Team Providers Care Director Of Customer Acquisition Name Role Phone Jazmin Ariza MD Primary Care Provider Encounter Details Date Type Department Care Team (Late st Contact Info) Description 03/19/2025 Telephone Cardiology, [facility] [address] [place] [phone] [facility] [address] [place] [address] Allergies [...] Description 03/24/2025 9:30 AM EDT Telemedicine Cardiology, [facility] [address] [place] [phone] Pranay [facility] Clinic Cardiology [facility] [address] [place] [address] 03/27/2025 2:30 PM EDT Office Visit Cardiology, [facility] [address] [place] [phone] Sunday Peralta PA-C [address] [place] [address] Health Maintenance Due Date Last Done Comments [...] Power of Attor annette? No Care Teams Director Of Customer Acquisition Relationship Specialty Start Date End Date Jazmin Ariza MD [address] [place] [address] PCP - General Family Medicine 07/07/15 documented as of this encounter
--- OUTSIDE RECORDS SUMMARY | 2025-03-21 00:18 | External Medical Summary | Summary of Care ---
Author Name Unknown Organization [facility] Address [address] [facility] [place] [address] Phone [phone] Care Team Providers Care Able Bodied Tankerman Name Role Phone Jazmin Ariza MD Primary Care Provider Reason for Visit * Reason Comments Defibrillator Clinic Encounter Details Date Type Department Care Team (Latest Contact Info) Description 03/10/2025 10:30 AM EDT Cardiac Studies Cardiology, [facility] [address] [facility] [place] [phone] [place] [address] [facility] [phone] Automatic implantable cardioverter-defibri llator in situ*; NSVT (nonsustained ventricular tachycardia) ([facility]) Allergies No known active allergiesdocumented as of this encounter (statuses as of 03/10/2025) Medications ASPIRIN 81 MG PO TABS once daily Active ONETOUCH DELICA LANCETS MISCIndications:LV (left ventricular) mural thrombus As directed - once or twice daily DX: 250.00 1 [address] 2 Active ONETOUCH ULTRA BLUE STRPIndications:LV (left ventricular) mural thrombus TEST ONCE TO TWICE DAILY DX 250.00 100 Strip 5 3 Active Spironolactone 25 MG Oral Tablet (Aldactone)Indicati ons:DCM (dilated cardiomyopathy) (HCC),Heart failure, systolic, with acute decompensation (HCC) Take 0.5 Tablets by mouth in the morning. 15 Tablet 5 5 Active Furosemide 20 MG Oral Tablet (Lasix)Indications: Idiopathic cardiomyopathy (HCC),DCM (dilated cardiomyopathy) (HCC),Heart failure, systolic, with acute decompensation (HCC) Take 1 Tablet by mouth in the morning. 31 Tablet 5 5 Active Metoprolol Succinate ER 25 MG Oral Tablet Extended Release 24 Hour (Toprol XL)Indications:Idio pathic cardiomyopathy (HCC),PVC (premature ventricular contraction) Take 0.5 Tablets by mouth in the morning. 15 Tablet 5 5 Active Atorvastatin Calcium 40 MG Oral Tablet (Lipitor)Indication s:Hyperlipidemia with target LDL less than 100 Take 1 Tablet by mouth daily. 100 Tablet 3 5 Active documented as of this encounter (statuses as of 03/10/2025) Active Problems Problem Noted Date Diagnosed Date Hyperlipidemia with target LDL less than 100 Overview (03/06/2016): ICD-10 update of inactive term Automatic implantable cardioverter-defibrillator in situ 11/02/2010 Benign neoplasm of colon 09/05/2010 Overview (10/17/2010): adenomatous polyp, f/u in one year Hemochromatosis 08/16/2010 Type 2 diabetes mellitus wit h hemoglobin A1c goal of less than 8.0% 04/18/2010 Overview (03/02/2016): ICD-10 update of inactive term Cardiomegaly 03/17/2010 Idiopathic cardiomyopathy 03/17/2010 Cardiomegaly 03/08/2010 Generalized osteoarthritis 08/17/2009 Family history of diabetes mellitus 08/17/2009 documented as of this encounter (statuses as of 03/10/2025) Resolved Problems Problem Noted Date Diagnosed Date Resolved Date LV (left ventricular) mural thrombus 03/17/2010 03/26/2012 Certain sequelae of myocardial infarction 03/14/2010 03/17/2010 Overview (02/04/2025): ICD-10 Update of Inactive Term documented as of this encounter (statuses as of 03/10/2025) Immunizations Name Administration Dates Next Due HEP [...] as of this encounter Progress Notes * Jerzy Rodgers, RN - 03/10/2025 11:17 AM EDT Chief Complaint Patient presents with Defibrillator Clinic In office interrogation of [employer] Defibrilator performed. Left pectoral device pocket is healthy without erythema, swelling, pain, or drainage. Providers see scanned report in Media tab labeled MURJ. Jerzy Rodgers RN documented in this encounter Plan of Treatment Upcoming Encounters Date Type Department Care Team (Late st Contact Info) Description 03/19/2025 9:00 AM EDT [facility] [address] [place] [phone] Pranay [facility] Cardiology Brandie [address] [place] [address] 03/27/2025 2:30 PM EDT Office Visit Cardiology, [facility] [address] [place] [phone] Sunday Peralta PA-C [address] [place] [address] Health Maintenance Due Date Last Done Comments [...] 3-dose series) 06/26/2014 05/01/2014, 10/31/2013 Albumin/Creatinine Ratio 10/31/2014 013, 10/25/2012, 08/31/2011, Additional history exists Diabetic Foot Exam 10/31/2014 10/31/2013, 1 12/25/2011, 10/20/2011, Additional history exists Colonoscopy 03/22/2019 03/22/2016, 04/11/2013, 12/14/2011, Additional history exists Colorectal Cancer Screening [...] as of this encounter Visit Diagnoses Diagnosis Automatic implantable cardioverter-defibrillator in situ- Primary NSVT (nonsustained ventricular tachycardia) (HCC) Paroxysmal ventricular tachycardia documented in this encounter Advance Directives * [...] Power of Attor annette? No Care Teams Able Bodied Tankerman Relationship Specialty Start Date End Date Jazmin Ariza MD [address] [place] [address] PCP - General Family Medicine 07/07/15 documented as of this encounter
--- OUTSIDE RECORDS SUMMARY | 2025-03-21 00:18 | External Medical Summary ---
Author Name Unknown Address Unknown Organization K01:LABORATORY [facility] [place] - [address] [place] [address] Laboratory Report Ordering Provider Test Date Status SACHIN ALVAREZ 02/18/2025 12:04:05 Final Observation Date Value Abnormality Reference (Units ) Status HbA1C 02/18/2025 12:04:05 10.6 Above high normal 4. 0-5.6 (%) Final The use of HbA1c to monitor glycemic status is based on normal hemoglobin and HbA composition. This test should not be used in patients with abnormal hemoglobin that affects the half life of the red blood cell or the in vivo glycation rates. Glucose, estimated average 02/18/2025 12:04:05 258 Above high normal <126 (mg/dL) Aleksander degroot Performing Location LABORATORY [facility] [place] - [address] [place] [address]
--- OUTSIDE RECORDS SUMMARY | 2025-03-21 00:18 | External Medical Summary ---
Author Name Unknown Address Unknown Organization [id number]:[facility] [place] [address] [place] [address] Laboratory Report Ordering Provider Test Date Status SACHIN ALVAREZ 02/18/2025 12:04:05 Final Observation Date Value Abnormality Reference (Units ) Status LDL, (direct) 02/18/2025 12:04:05 128 <=129 (mg/dL) Final LDL Cholesterol Reference Ra nges (mg/dL):
<70 � � Target level for high risk ASCVD patient
<100 � �Optimal for general population
100-129 Near optimal for general population
130-159 Borderline high
160-189 High
>=190 � Very high Performing Location LABORATORY [facility] - [address] [place] [address]
--- OUTSIDE RECORDS SUMMARY | 2025-03-21 00:18 | External Medical Summary | Summary of Care ---
Author Name Unknown Organization [facility] Address [address] [facility] [address] Phone [phone] Care Team Providers Care Chart Snatcher Name Role Phone Jazmin Ariza MD Primary Care Provider Reason for Visit * Reason Comments Outpatient Testing Encounter Details Date Type Department Care Team (Latest Contact Info) Description 02/18/2025 12:00 PM EDT Laboratory Laboratory, [facility] [address] [facility] [phone] [facility] [address] [facility] [address] Acute on chronic systolic congestive heart failure (HCC); Hemochromatosis, unspecified hemochromatosis type; Dyslipidemia, goal LDL below 70; Encounter for monitoring diuretic therapy; Orthopnea; Type 2 diabetes mellitus with hemoglobin A1c goal of less than 8.0% (HCC); Idiopathic cardiomyopathy (HCC) Allergies No known active allergiesdocumented as of this encounter (statuses as of 02/18/2025) Medications ASPIRIN 81 MG PO TABS once [...] the morning. 15 Tablet 5 5 Active documented as of this encounter (statuses as of 02/18/2025) Active Problems Problem Noted Date Diagnosed Date [...] as of this encounter (statuses as of 02/18/2025) Resolved Problems Problem Noted Date Diagnosed Date Resolved Date LV (left ventricular) mural thrombus 03/17/2010 03/26/2012 Certain sequelae of myocardial infarction 03/14/2010 03/17/2010 Overview (02/04/2025): ICD-10 Update of Inactive Term documented as of this encounter (statuses as of 02/18/2025) Immunizations Name Administration Dates Next Due HEP [...] on file documented as of this encounter Plan of Treatment Upcoming Encounters Date Type Department Care Team (Late st Contact Info) Description 03/10/2025 10:30 AM EDT Cardiac Studies Cardiology, [facility] [address] [place] [phone] [place] [address] [place] [address] 03/27/2025 2:30 PM EDT Office Visit Cardiology, [facility] [address] [place] [phone] Sunday Peralta PA-C [address] [place] [address] Pending Results Name Type Priority Associated Diagnoses Date /Time BNP, NT-PRO Lab Routine Orthopnea 02/18/2025 12:04 PM EDT HEMOGLOBIN A1C Lab Routine Type 2 diabetes mellitus with hemoglobin A1c goal of less than 8.0% (HCC) 02/18/2025 12:04 PM EDT MAGNESIUM Lab Routine Encounter for monitoring diuretic therapy 02/18/2025 12:04 PM EDT TSH WITH FREE T4 IF INDICATED Lab Routine Idiopathic cardiomyopathy (HCC) 02/18/2025 12:04 PM EDT FERRITIN Lab Routine Hemochromatosis, unspecified hemochromatosis type 02/18/2025 12:04 PM EDT IRON SCREEN, INCLUDING TIBC Lab Routine Hemochromatosis, unspecified hemochromatosis type 02/18/2025 12:04 PM EDT SERUM PROTEIN ELECTROPHORESIS REFLEX PROFILE Lab Routine Idiopathic cardiomyopathy (HCC) 02/18/2025 12:04 PM EDT LDL CHOLESTEROL (DIRECT MEASURE) Lab Routine Dyslipidemia, goal LDL below 70 02/18/2025 12:04 PM EDT ERYTHROCYTE SEDIMENTATION RATE (ESR) Lab Routine Idiopathic cardiomyopathy (HCC) 02/18/2025 12:04 PM EDT CRP (INFLAMMATORY MARKER) Lab Routine Idiopathic cardiomyopathy (HCC) 02/18/2025 12:04 PM EDT Health Maintenance Due Date Last Done Comments [...] - Td or Tdap) 12/20/2020 12/20/2010, 04/05/2002 HbA1c 07/02/2023 01/02/2023, 03/05, 10/22/2017, Additional history exists COVID-19 Vaccine ( season) 2024 Influenza Vaccine (FLU shot) (Season Ended) 2025 08/18/2013, 08/19/2012, 08/19/2011, Additional history exists GFR 02/18/2026 02/18/2025, 12/07, 03/21/2019, Additional history exists Lipid Panel 01/02/2028 01/02/2023, 03/05, 02/05/2017, Additional history exists HPV (Gardasil) Vaccine Aged [...] Not on filedocumented as of this encounter Procedures Procedure Name Priority Date/Time Associated Diagnosis Comments DIFFERENTIAL, AUTOMATED Routine 02/18/2025 12:04 PM EDT Acute on chronic systolic congestive heart failure (HCC) Hemochromatosis, unspecified hemochromatosis type COMPREHENSIVE METABOLIC PANEL Routine 02/18/2025 12:04 PM EDT Dyslipidemia, goal LDL below 70 Acute on chronic systolic congestive heart failure (HCC) Encounter for monitoring diuretic therapy CBC Routine 02/18/2025 12:04 PM EDT Acute on chronic systolic congestive heart failure (HCC) Hemochromatosis, unspecified hemochromatosis type PT INR Routine 02/18/2025 12:04 PM EDT Idiopathic cardiomyopathy (HCC) APTT Routine 02/18/2025 12:04 PM EDT Idiopathic cardiomyopathy (HCC) CBC Routine 02/18/2025 12:04 PM EDT Acute on chronic systolic congestive heart failure (HCC) Hemochromatosis, unspecified hemochromatosis type documented in this encounter Results * (ABNORMAL) DIFFERENTIAL, AUTOMATED (02/18/2025 12:04 PM EDT) [facility] Signature WBC 7.39 4.00 - 10.80 K/uL 02/18/2025 12:24 PM EDT [facility] [facility] Neutrophils % 74.4 40.0 - 75.0 % 02/18/2025 12:24 PM EDT [facility] [place] [facility] [facility] Lymphocytes % 16.4(L) 18.0 - 42.0 % 02/18/2025 12:24 PM EDT [facility] [place] [facility] Monocytes % 7.7 1.0 - 11.0 % 02/18/2025 12:24 PM EDT [facility] Eosinophils % 1.2 0.0 - 6.0 % 02/18/2025 12:24 PM EDT [facility] [place] [facility] Basophils % 0.3 0.0 - 2.0 % 02/18/2025 12:24 PM EDT [facility] [place] [facility] [facility] Absolute Neutrophils 5.50 1.80 - 7.70 K/uL 02/18/2025 12:24 PM EDT [facility] [place] [facility] [facility] Absolute Lymphocytes 1.21 1.00 - 4.80 K/ul 02/18/2025 12:24 PM EDT [facility] [place] [facility] Absolute Monocytes 0.57 0.00 - 1.10 K/uL 02/18/2025 12:24 PM EDT [facility] [place] [facility] Absolute Eosinophils 0.09 0.00 - 0.70 K/uL 02/18/2025 12:24 PM EDT [facility] [place] [facility] Absolute Basophils 0.02 0.00 - 0.20 K/uL 02/18/2025 12:24 PM EDT [facility] [facility] Blood Venous blood specimen / Unknown Venipuncture / Unknown 02/18/2025 12:04 PM EDT 02/18/2025 12:04 PM EDT Sunday Peralta PA-C LAB BLOOD ORDERABLES Final Result [facility] [address] [facility] [address] * CBC (02/18/2025 12:04 PM EDT) [facility] Signature WBC 7.39 4.00 - 10.80 K/uL 02/18/2025 12:24 PM EDT [facility] RBC 5.31 4.50 - 5.25 M/uL 02/18/2025 12:24 PM EDT [facility] [place] [facility] [facility] HGB 16.2 14.0 - 16.8 g/dL 02/18/2025 12:24 PM EDT [facility] [place] [facility] HCT 46.2 40.0 - 48.4 % 02/18/2025 12:24 PM EDT [facility] [place] [facility] MCV 87.0 82.0 - 99.5 fL 02/18/2025 12:24 PM EDT [facility] MCH 30.5 27.0 - 34.0 pg 02/18/2025 12:24 PM EDT [facility] [place] [facility] [facility] MCHC 35.1 32.0 - 36.0 g/dL 02/18/2025 12:24 PM EDT [facility] [place] [facility] [facility] RDW 12.9 11.5 - 15.5 % 02/18/2025 12:24 PM EDT [facility] PLT 167 140 - 400 K/uL 02/18/2025 12:24 PM EDT [facility] MPV 9.5 6.6 - 11.1 fL 02/18/2025 12:24 PM EDT [facility] [place] [facility] Blood Venous blood specimen / Unknown Venipuncture / Unknown 02/18/2025 12:04 PM EDT 02/18/2025 12:04 PM EDT Sunday Peralta PA-C LAB BLOOD ORDERABLES Final Result [facility] [place] [address] * PT INR (02/18/2025 12:04 PM EDT) Prothrombin Time 12.8 11.6 - 15.2 seconds 02/18/2025 12:51 PM EDT [facility] INR 1.0 0.8 - 1.2 02/18/2025 12:51 PM EDT [facility] [place] [facility] [facility] Blood Venous blood specimen / Unknown Venipuncture / Unknown 02/18/2025 12:04 PM EDT 02/18/2025 12:04 PM EDT Narrative [facility] [place] [facility] [facility] - 02/18/2025 12:51 PM EDT Warfarin Therapy INR: 2.0-3.0 conventional anticoagulation INR: 2.5-3.5 high intensity anticoagulation Everstringardo PA-C LAB BLOOD ORDERABLES Final Result [facility] [place] [address] * APTT (02/18/2025 12:04 PM EDT) Pathologist [facility] aPTT 28 21 - 38 seconds 02/18/2025 12:52 PM EDT [facility] Blood Venous blood specimen / Unknown Venipuncture / Unknown 02/18/2025 12:04 PM EDT 02/18/2025 12:04 PM EDT Narrative [facility] - 02/18/2025 12:52 PM EDT Anticoagulation may affect testing. Refer to [employer] Test Catalog for a list of effects. Casengo PA-C LAB BLOOD ORDERABLES Final Result [facility] [place] [address] * (ABNORMAL) COMPREHENSIVE METABOLIC PANEL (02/18/2025 12:04 PM EDT) BUN 16 6 - 20 mg/dL 02/18/2025 1:36 PM EDT [facility] CREATININE 0.7 0.6 - 1.2 mg/dL 02/18/2025 1:36 PM EDT [facility] EGFR >90 >=60 mL/min 02/18/2025 1:36 PM EDT [facility] Comment:eGFR is calculated b ased on the CKD-EPI 2020 equation. SODIUM 136 135 - 146 mmol/L 02/18/2025 1:36 PM EDT [facility] POTASSIUM 4.1 3.5 - 5.1 mmol/L 02/18/2025 1:36 PM EDT [facility] [place] [facility] CHLORIDE 98 98 - 107 mmol/L 02/18/2025 1:36 PM EDT [facility] [place] [facility] CO2 28 22 - 32 mmol/L 02/18/2025 1:36 PM EDT [facility] [place] [facility] ANION GAP 10 7 - 15 mmol/L 02/18/2025 1:36 PM EDT [facility] GLUCOSE 347(H) 70 - 120 mg/dL 02/18/2025 1:36 PM EDT [facility] [place] [facility] Albumin 4.1 3.8 - 5.0 g/dL 02/18/2025 1:36 PM EDT [facility] [place] [facility] AST 13 10 - 50 U/L 02/18/2025 1:36 PM EDT [facility] [place] [facility] [facility] Alkaline Phosphatase 112 35 - 130 U/L 02/18/2025 1:36 PM EDT [facility] [place] [facility] Bilirubin, Total 1.1 <=1.2 mg/dL 02/18/2025 1:36 PM EDT [facility] CALCIUM 9.3 8.4 - 10.2 mg/dL 02/18/2025 1:36 PM EDT [facility] [place] [facility] Protein 6.2 6.0 - 8.3 g/dL 02/18/2025 1:36 PM EDT [facility] ALT 15 10 - 50 U/L 02/18/2025 1:36 PM EDT [facility] [place] [facility] Blood Venous blood specimen / Unknown Venipuncture / Unknown 02/18/2025 12:04 PM EDT 02/18/2025 12:04 PM EDT Sunday Peralta PA-C LAB BLOOD ORDERABLES Final Result [facility] [address] [place] [address] documented in this encounter Visit Diagnoses Diagnosis Acute on chronic systolic congestive heart failure (HCC) Acute on chronic systolic heart failure Hemochromatosis, unspecified hemochromatosis type Dyslipidemia, goal LDL below 70 Other and unspecified hyperlipidemia Encounter for monitoring diuretic therapy Encounter for therapeutic drug monitoring Orthopnea Type 2 diabetes mellitus with hemoglobin A1c goal of less than 8.0% (HCC) Idiopathic cardiomyopathy (HCC) Other primary cardiomyopathies documented in this encounter Advance Directives * [...] Power of Attor annette? No Care Teams Chart Snatcher Relationship Specialty Start Date End Date Jazmin Ariza MD [address] [place] [address] PCP - General Family Medicine 07/07/15 documented as of this encounter
--- OUTSIDE RECORDS SUMMARY | 2025-03-21 00:18 | External Medical Summary | Summary of Care ---
Author Name Unknown Organization [facility] Address [address] [place] [address] Phone [phone] Care Team Providers Care Inspector Precision Name Role Phone Jazmin Ariza MD Primary Care Provider Reason for Referral * Evaluate & Treat - Unlimited Visits (Within 10 days (routine)) - Authorized Specialty Diagnoses / Procedures Referred By Marianne rosa Referred To Contact Pharmacist / Pharmacy Diagnoses Acute on chronic systolic congestive heart failure (HCC) Sunday Peralta PA-C [address] [place] [address] Phone: tel: fax: Referral ID Status Reason Start Date Expiration Date Visits Requested Visits Authorized [id number] Authorized Specialty Services Required 02/18/2025 08/17/2025 99 99 Question Answer Referral Priority Within 10 days (routine) Where should this appointment be scheduled? [facility] Referring Provider Role: Specialist Specialty: Cardio Reason for Referral: HF Comments Pharmacist Medication Therapy Management: Minimum frequency patient should be seen in person for medication management: as appropriate per clinical condition and patient status By my signature, I understand that my patient Sunday Faith will have his medication therapy managed by the [facility] ([facility]) per established policies, procedures, and protocols. I also certify that this referral may serve as an initiation of service for the management of drug therapy in the above noted patient. [facility] providers will be responsible for scheduling patient visits, obtaining appropriate laboratory studies, and adjusting medication management therapy per patient's need, in addition to those roles spelled out in the clinic policy, procedures, and drug management protocols. I understand that the service provided by the [facility] is voluntary and have informed patient that they can refuse the service at their discretion. I am aware that the [facility] will provide me with a copy of the patient encounter via my [employer]. I authorize the [facility] to carry out these activities on my behalf. I consider this program to be a necessary part of the patient's medical care. Sunday Peralta PA-C Reason for Visit * Reason Comments Follow Up Encounter Details Date Type Department Care Team (Latest Contact Info) Description 02/18/2025 11:30 AM EDT Office Visit Cardiology, [facility] [address] [place] [phone] Sunday Peralta PA-C [address] [place] [id number] DCM (dilated cardiomyopathy) (HCC)*; Hyperlipidemia with target LDL less than 100; Idiopathic cardiomyopathy (HCC); Cardiomegaly; Dyslipidemia, goal LDL below 70; HTN, goal below 130/80; Acute on chronic systolic congestive heart failure (HCC); Heart failure, systolic, with acute decompensation (HCC); PVC (premature ventricular contraction); Orthopnea; Type 2 diabetes mellitus with hemoglobin A1c goal of less than 8.0% (HCC); Hemochromatosis, unspecified hemochromatosis type; Encounter for monitoring diuretic therapy Allergies No known active allergiesdocumented as of this encounter (statuses as of 02/19/2025) Medications ASPIRIN 81 MG PO TABS once daily Active ONETOUCH DELICA LANCETS MISCIndications:L V (left ventricular) mural thrombus As directed - once or twice daily DX: 250.00 1 Box 11 11/20/19 12 Active ONETOUCH ULTRA BLUE STRPIndications:L V (left ventricular) mural thrombus TEST ONCE TO TWICE DAILY DX 250.00 100 Strip 5 12/24/19 13 Active Spironolactone 25 MG Oral Tablet (Aldactone)Indica tions:DCM (dilated cardiomyopathy) (HCC),Heart failure, systolic, with acute decompensation (HCC) Take 0.5 Tablets by mouth in the morning. 15 Tablet 5 02/19/20 25 Active Furosemide 20 MG Oral Tablet (Lasix)Indication s:Idiopathic cardiomyopathy (HCC),DCM (dilated cardiomyopathy) (HCC),Heart failure, systolic, with acute decompensation (HCC) Take 1 Tablet by mouth in the morning. 31 Tablet 5 02/19/20 25 Active Metoprolol Succinate ER 25 MG Oral Tablet Extended Release 24 Hour (Toprol XL)Indications:Id iopathic cardiomyopathy (HCC),PVC (premature ventricular contraction) Take 0.5 Tablets by mouth in the morning. 15 Tablet 5 02/19/20 25 Active FISH OIL 1000 MG PO CAPSIndications:D yslipidemia, goal LDL below 100 4 caps daily 120 Cap 5 05/03/20 11 025 Discontinued SPIRONOLACTONE 25 MG PO TABSIndications:I diopathic cardiomyopathy (HCC),Cardiomegal y TAKE 1 TABLET EVERY DAY 30 Tab 11 11/30/19 14 025 Discontinued(R efill) FUROSEMIDE 20 MG PO TABSIndications:I diopathic cardiomyopathy (HCC),Cardiomegal y TAKE 1 TABLET EVERY DAY 30 Tab 5 07/08/20 14 025 Discontinued(R efill) JANUVIA 100 MG Tablet TAKE ONE TABLET ONCE DAILY 30 Tab 0 07/08/20 15 025 Discontinued Glimepiride 4 MG Oral Tablet (Amaryl) TAKE 1 TABLET BY MOUTH EVERY DAY IN THE MORNING 01/21/20 21 025 Discontinued Lisinopril 10 MG Oral Tablet (Prinivil) Take 0.5 Tablets by mouth in the morning. 02/11/20 21 025 Discontinued Atorvastatin Calcium 40 MG Oral Tablet (Lipitor)Indicati ons:Hyperlipidemi a with target LDL less than 100 TAKE 1 TABLET BY MOUTH EVERY DAY 90 Tablet 3 12/05/19 22 025 Discontinued Fenofibrate 145 MG Oral Tablet (Tricor)Indicatio ns:Dyslipidemia, goal LDL below 100 Take 1 Tablet by mouth in the morning. 90 Tablet 3 06/14/20 23 025 Discontinued Digoxin 125 MCG Oral Tablet (Lanoxin)Indicati ons:Idiopathic cardiomyopathy (HCC),Cardiomegal y TAKE 1 TABLET BY MOUTH 5 DAYS PER WEEK 65 Tablet 3 09/20/20 23 025 Discontinued Carvedilol 6.25 MG Oral Tablet (Coreg)Indication s:Idiopathic cardiomyopathy (HCC),Cardiomegal y TAKE 1 TABLET BY MOUTH IN THE MORNING & TAKE 2 TABS BY MOUTH IN THE EVENING 270 Tablet 3 09/20/20 23 025 Discontinued Hospital, Clinic, or Other Facility Administered Medication Ordered Dose Route Frequency Start Date End Date Status perflutren lipid microsphere inj SUSP 1.956 mgIndications:Acute systolic heart failure (HCC),SOB (shortness of breath) 1.956 mg IV ONCE PRN 02/18/2025 02/18/2025 Ended documented as of this encounter (statuses as of 02/19/2025) Active Problems Problem Noted Date Diagnosed Date [...] as of this encounter (statuses as of 02/19/2025) Resolved Problems Problem Noted Date Diagnosed Date Resolved Date LV (left ventricular) mural thrombus 03/17/2010 03/26/2012 Certain sequelae of myocardial infarction 03/14/2010 03/17/2010 Overview (02/04/2025): ICD-10 Update of Inactive Term documented as of this encounter (statuses as of 02/19/2025) Immunizations Name Administration Dates Next Due HEP [...] on file documented as of this encounter Last Filed Vital Signs Vital Sign Reading Time Taken Comments Blood Pressure 142/60 02/18/2025 11:09 AM EDT Pulse 76 02/18/2025 11:09 AM EDT Temperature - - Respiratory Rate 14 02/18/2025 11:09 AM EDT Oxygen Saturation - - Inhaled Oxygen Concentration - - Weight 65.5 kg (144 lb 8 oz) 02/18/2025 11:09 AM EDT Height - - Body Mass Index 19.6 06/03/2019 7:50 AM EDT documented in this encounter Progress Notes * Sunday Peralta PA-C - 02/18/2025 11:06 AM EDT History of Present Illness: Sunday Faith is a very pleasant 64-year-old male evaluated today as an acute add on Patient initially presented to [facility] in March 2010 secondary acute CHF, severe systolic dysfunction associated with a large LV thrombus. LVEF 10-15% on initial presentation. Diagnostic cardiac catheterization performed by Dr. Moran on 03/11/2010 revealed mild nonocclusive CAD, mild pulmonary hypertension with a peak PA pressure of 40/24 was observed; CVP was mildly elevated at 13. On October 25, 2010 a single chamber implantable cardioverter defibrillator was implanted by Dr. Guillaume without complications, never receiving an ICD shock though with asymptomatic, nonsustained ventricular tachycardia s/p successful antitachycardia pacing before charging. Generator exchange on September 30, 2019 without issue. Prior echocardiograms demonstrated improvement in systolic function, with resolution of LV thrombus leading to discontinuation of coumadin anticoagulation. Additional problems include type IIdiabetes mellitus, dyslipidemia, hemochromatosis requiring past phlebotomy, and osteoarthritis. Arthroscopic left shoulder surgery in April 2016. Approximately 3 weeks ago patient had respiratory symptoms, concern for pneumonia. He describes today, at that time, feeling out of breath particularly when lying down, having to sleep fci up, also with a cough and some congestion. No fevers or rigors. Notes presenting to Urgent Care and prescribed an antibiotic (? Doxycycline) for possible pneumonia. After leaving Urgent Care he was told that the chest x-ray revealed congestive heart failure and that he needed to be seen by Cardiology promptly. He also recently had an issue with the tooth, just finishing up a course of amoxicillin. Resting echocardiography performed earlier today notable for substantial decline in overall LV systolic function, EF less than 20%. LV cavity size was described as severely dilated. Wall thickness was normal. No LV thrombus observed. Grade 3 diastolic dysfunction noted. Left atrium was severely dilated. Moderate mitral regurgitation observed. Moderate pulmonary hypertension present. Patient has been noncompliant with all medications for at least the last year to 1.5 years. He is taking aspirin occasionally. He did have a bottle of carvedilol and has been taking 1 pill proximallyevery 3 to 4 days. He took a digoxin tablet once about 2 weeks ago. His had some lisinopril and he took one approximately 1 week ago. He is not currently taking anything for the type II diabetesmellitus. 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 He denies chest pain ordiscomfort. He denies tachypalpitations. He denies device alarms or discharges. No recent device interrogation noted. His orthopnea and PND have seemed to improved. He does have a nonproductive cough. He notes no lower extremity peripheral edema. He denies dizziness or lightheadedness. No near syncope or syncope. No melena or hematochezia. No recent phlebotomy (hemochromatosis history) Past Medical and Surgical History: History of severe systolic congestive heart failure and prior large LV thrombus, EF 10-15%. Diagnostic cardiac catheterization performed by Dr. Moran on 03/11/2010 revealed mild nonocclusive CAD, mild pulmonary hypertension with a peak PA pressure of 40/24 was observed; CVP was mildly elevated at 13. Status post October 25, 2010 a single chamber implantable cardioverter defibrillator implantation,generator exchange on September 30, 2019 Asymptomatic nonsustained ventricular tachycardia s/p successful antitachycardia pacing before charging. Occasional PVC's and SVT/NS-VT, asymptomatic Type II diabetes mellitus Hypertension Dyslipidemia Hemochromatosis requiring past phlebotomy Osteoarthritis. Arthroscopic left shoulder surgery in April 2016. Tooth extraction Vasectomy Family History: Strong history of diabetes. Mother had a pacer, passing at 79. Father was a heavy smoker and had diabetes. Social History: Nonsmoker. No significant alcohol. No illegal drugs. . Works in [employer] at [employer], previously working 15 years in [place] and for [employer] near [place], [place]. Plans to hopefully retired August 05, 2025. Complete review of system is otherwise as stated above, negative, or noncontributory Patient Active Problem List Diagnosis Generalized osteoarthritis Family history of diabetes mellitus Cardiomegaly Cardiomegaly Idiopathic cardiomyopathy (HCC) Type 2 diabetes mellitus with hemoglobin A1c goal of less than 8.0% (HCC) Hemochromatosis Benign neoplasm of colon Automatic implantable cardioverter-defibrillator in situ Hyperlipidemia with target LDL less than 100 Past Medical History: Diagnosis Date Benign neoplasm of colon 09/2010 adenomatous polyp, f/u in one year Cardiomegaly Disorder of liver fatty liver Hx of colonoscopy with polypectomy 12/14/2011 adenomatous polyp repeat 2 years Past Surgical History: Procedure Laterality Date CARDIAC CATH-CARDIOLOGY ONLY 03/11/10 normal lower heart vessels COLONOSCOPY THRU STOMA, W/BIOPSY 09/2010 adenomatous polyp, f/u in one year COLONOSCOPY, DIAGNOSTIC (RECTUM) 03/22/2016 adenomatous polyp, diverticulosis, repeat 3 yrs/[facility] INSERT/REPLACE DEFIBRILLATOR W/TRANSVERSE LEAD(S) 10/25/2010 NON-THOR ICD LEADS AND GENERATOR IMPLANT performed by DAJUAN GUILLAUME IV at [facility] Family History Problem Relation Name Age of Onset Diabetes Mother Diabetes Father Diabetes Sister Gastro-intestinal disorder Sister diverticulitis Diabetes Brother Lung Disorder Brother COPD No Past Hx Daughter Heart Disorder Son WP Syndrome/ VSD/ Marfan's Syndrome Other (Other) Son Marfan's Syndrome Complete Review of Systems is as stated above, negative, or noncontributory. Review of patient's allergies indicates: No Known Allergies Current Outpatient Medications Medication Sig Dispense Refill ASPIRIN 81 MG PO TABS once daily Spironolactone 25 MG Oral Tablet (Aldactone) Take 0.5 Tablets by mouth in the morning. 15 Tablet 5 Furosemide 20 MG Oral Tablet (Lasix) Take 1 Tablet by mouth in the morning. 31 Tablet 5 Metoprolol Succinate ER 25 MG Oral Tablet Extended Release 24 Hour (Toprol XL) Take 0.5 Tablets by mouth in the morning. 15 Tablet 5 ONETOUCH DELICA LANCETS MISC As directed - once or twice daily DX: 250.00 1 [address] 11 ONETOUCH ULTRA BLUE STRP TEST ONCE TO TWICE DAILY DX 250.00 100 Strip 5 No current facility-administered medications for this visit. OBJECTIVE/PHYSICAL EXAMINATION: BP 142/60 (BP Site: Left Arm) | Pulse 76 | Resp 14 | Wt 65.5 kg (144 lb 8 oz) | BMI 19.60 kg/m² | BSA 1.82 m² General: NAD. HENT: Normocephalic. Atraumatic. Eyes: PER. Conjunctiva clear. Sclera pale. Neck: No carotid bruits. +JVD. +hepatojugular reflux. Heart: Irregular, 76 bpm, frequent ectopy Lungs: Decreased breath sounds at the bases bilaterally. Right basilar rales. No wheeze. Abdomen: +BS. Soft. Nontender. No masses or organomegaly. Extremities: Healed excoriations. Mild stasis changes. No significant edema. No clubbing. No cyanosis. Pulses: radial=2/4, posterior tibial=2/4. Data: August 02, 2021 TTE Interpretation Summary (as per Dr. Coffman): Mildly dilated LV chamber size with mild concentric LVH. Mildly reduced LV systolic function with mild global hypokinesis. Calculated LV ejection Fraction = 49% (bi-plane method of discs). Grade 1 diastolic dysfunction. No significant valvular pathology. Mild left atrial enlargement. Device interrogation on April 10, 2023 demonstrated appropriate function with adequate battery reserve. Remaining longevity: 7.7 years. This is a single lead ICD with backup pacemaker set VVI 40 bpm. VS 100%. NSVT episodes since February 2022: 46. OptiVol below threshold. February 18, 2025 TTE Interpretation Summary (as per Dr. Villarreal): The left ventricular cavity size is severely enlarged. The LV wall thickness is normal. There is severe diffuse left ventricular hypokinesis. The qualitative LV ejection fraction is <20% (severely reduced). The left ventricular diastolic function is severely abnormal (grade III). The left atrium is severely enlarged (>48 ml/m^2,). Moderate mitralregurgitation is present. Mild tricuspid regurgitation is present. Moderate pulmonary hypertension is present. In comparison to prior study of August 02, 2021 there has been substantial decline inoverall systolic function February 18, 2025 EKG: Sinus rhythm at 76 bpm with occasional premature ventricular complexes. Voltagecriteria for LVH, maybe a normal variant. Inferolateral ST-T wave abnormality. QRS duration 102 ms.QTc 438 ms. When compared to prior available EKG, PVCs are now present and the inferior and lateralST segment changes are new IMPRESSION: 64-year-old male [facility] recently presenting to Urgent Care in [place] with signs and symptoms suggestive of acute decompensated heart failure.Resting echocardiography obtained earlier today revealed a severely dilated left ventricle with sign ificant decline in overall LV systolic function compared to prior, EF less than 20%. Patient noncompliant with guideline directed medical therapy, device interrogations, and Cardiology follow-up. Examination today with evidence of mild decompensation, ? Small bilateral pleural effusions. NYHA ClassII-III at present. QRS duration narrow. Single-chamber ICD already in place. No LV thrombus appreciated on transthoracic echo. Options of management discussed including inpatient versus outpatient evaluation and treatment. We will be attempting outpatient management as requested, as follows: RECOMMENDATIONS/PLAN: Nonfasting laboratory work today PA and lateral chest x-ray today Arrange for device interrogation with the [facility] Start furosemide 20 mg/day Start spironolactone 12.5 mg/day Start metoprolol succinate 12.5 mg/day Start aspirin 81 mg daily MTM Clinic consultation for titration of GDMT - initiation of Entresto, Jardiance, statin. Future referral for diagnostic coronary angiography discussed Cardiology follow-up in 2 to 3 weeks or as needed ER with emergencies Sunday Peralta PA-C Department of Cardiology I spent a total of Greater than 55 mins (exact time 77 mins) on the date of service in preparation,delivery, and documentation of the care provided to Sunday Faith excluding any time spent in theperformance of separately billed services. This visit involved medical care services related to at least one serious condition or complex condition requiring ongoing care. This chart was completed in part utilizing [employer] Speech Voice Recognition Software. Grammatical errors, random word insertions, prounoun errors, and incomplete sentences are an occasional consequence of this system due to software limitations, ambient noise, and hardware issues. Any formal questions or concerns about the content, text, or information contained within the body of this dictation should be directly addressed to the provider for clarification. documented in this encounter Procedure Notes * Rene Villarreal MD - 02/18/2025 11:19 AM EDTAssociated Order(s): EKG REASON FOR STUDY: Annual;Annual CONCLUSIONS: Sinus rhythm with occasional Premature ventricular complexes High QRS voltage may be normal variant or due to lve ST & T wave abnormality, consider inferolateral ischemia Abnormal ECG When compared with ECG of 14-Jun-2023 09:32, Premature ventricular complexes are now Present ST now depressed in Inferior leads T wave inversion now evident in Inferior leads T wave inversion now evident in Lateral leads Ventricular Rate: 76 Atrial Rate: 76 MT Interval: 150 QRS Duration: 102 QT/QTc: 390/438 ms P-R-T Somis: 54 : 48 : 247 degrees documented in this encounter Nursing Notes * Katherine Soto CMA - 02/18/2025 11:05 AM EDT Examination Room: 2 Name: Sunday Faith Date of : (1960). Reason for Visit: Echo f/u Interim Hospitalization(s): denies Problems/Concerns: denies Chest Pain/SOB: SOB resolved since ER visit [facility] Discussed: Yes My [facility] is a way you can talk to your provider online through e-mail. Would you like to sign up? I can activate it for you? ALREADY ACTIVE Patient was instructed to not get up on the exam table until directed and assisted by their provider; patient is to remain seated in the chair/ wheelchair/ exam table for fall prevention and safety reasons. Patient is aware to have assistance to step down off exam table with personnel. Patient voiced full comprehension of instructions. documented in this encounter Miscellaneous Notes * Result Encounter Note - Sunday Peralta PA-C - 02/18/2025 4:18 PM EDT Chest x-ray with small left pleural effusion documented in this encounter Plan of Treatment Upcoming Encounters Date Type Department Care Team (Late st Contact Info) Description 03/10/2025 10:30 AM EDT Cardiac Studies Cardiology, [facility] [address] [place] [phone] [facility] [address] [place] [phone] 03/27/2025 2:30 PM EDT Office Visit Cardiology, [facility] [address] [place] [phone] Sunday Peralta PA-C [address] [place] [phone] Pending Results Name Type Priority Associated Diagnoses Date /Time BNP, NT-PRO Lab Routine Orthopnea 02/18/2025 12:04 PM EDT TSH WITH FREE T4 IF INDICATED Lab Routine Idiopathic cardiomyopathy (HCC) 02/18/2025 12:04 PM EDT FERRITIN Lab Routine Hemochromatosis, unspecified hemochromatosis type 02/18/2025 12:04 PM EDT SERUM PROTEIN ELECTROPHORESIS REFLEX PROFILE Lab Routine Idiopathic cardiomyopathy (HCC) 02/18/2025 12:04 PM EDT Scheduled Orders Name Type Priority Associated Diagnoses Orde r Schedule BNP, NT-PRO Lab Routine Orthopnea Expected: 02/18/2025, Expires: 02/18/2026 TSH WITH FREE T4 IF INDICATED Lab Routine Idiopathic cardiomyopathy (HCC) Expected: 02/18/2025, Expires: 02/18/2026 FERRITIN Lab Routine Hemochromatosis, unspecified hemochromatosis type Expected: 02/18/2025, Expires: 02/18/2026 SERUM PROTEIN ELECTROPHORESIS REFLEX PROFILE Lab Routine Idiopathic cardiomyopathy (HCC) Expected: 02/18/2025, Expires: 02/18/2026 Scheduled Referrals Name Type Priority Associated Diagnoses Orde r Schedule PHARMACIST MEDS THERAPY MGMT REFERRAL OP Referral Within 10 days (routine) Acute on chronic systolic congestive heart failure (HCC) Ordered: 02/18/2025 Health Maintenance Due Date Last Done Comments [...] Procedure Name Priority Date/Time Associated Diagnosis Comments XR CHEST 2 VIEWS Routine 02/18/2025 12:2 3 PM EDT Acute on chronic systolic congestive heart failure (HCC) Orthopnea HC ECG TRACING ONLY Routine 02/18/2025 11:19 AM EDT Idiopathic cardiomyopathy (HCC) documented in this encounter Results * XR CHEST 2 VIEWS (02/18/2025 12:23 PM EDT) Anatomical Region Laterality Modality Chest Digital Radiogra phy 02/18/2025 3:55 PM EDT Impressions 02/18/2025 3:53 PM EDT IMPRESSION 1. Small left pleural effusion and adjacent opacity likely atelectasis. 2. Right ventricular AICD lead in place. Narrative 02/18/2025 3:53 PM EDT EXAM XR CHEST 2 VIEWS - 02/18/2025 12:23 pm HISTORY orthopnea TECHNIQUE PA and Lateral views obtained of the chest. COMPARISON Chest radiographs 10/25/2010 FINDINGS Support Apparatus: Left chest subclavian approach single AICD lead projects in the region of the right ventricular apex, though the generator appears to have been revised in the interval. Heart: Unchanged from prior, appearing at the upper normal limits of overall size. Mediastinum: Unremarkable. Lungs: Normal, symmetric lung volumes.The lungs are clear without confluent opacity aside from minimal linear basilar opacity. Pleura: Small left pleural effusion, new from the remote comparison. No significant right pleural fluid identified. Bones: No acute osseous abnormality identified. Procedure Note Chan Calix MD - 02/18/2025 EXAM XR CHEST 2 VIEWS - 02/18/2025 12:23 pm HISTORY orthopnea TECHNIQUE PA and Lateral views obtained of the chest. COMPARISON Chest radiographs 10/25/2010 FINDINGS Support Apparatus: Left chest subclavian approach single AICD leadprojects in the region of the right ventricular apex, though the generatorappears to have been revised in the interval. Heart: Unchanged from prior, appearing at the upper normal limits ofoverall size. Mediastinum: Unremarkable. Lungs: Normal, symmetric lung volumes.The lungs are clear withoutconfluent opacity aside from minimal linear basilar opacity. Pleura: Small left pleural effusion, new from the remote comparison. Nosignificant right pleural fluid identified. Bones: No acute osseous abnormality identified. IMPRESSION IMPRESSION 1. Small left pleural effusion and adjacent opacity likely atelectasis. 2. Right ventricular AICD lead in place. us Sunday Peralta PA-C RADIOLOGY (RAD GENERAL) [facility] al Result * CRP (INFLAMMATORY MARKER) (02/18/2025 12:04 PM EDT) CRP (Inflammatory Marker) <3 <=5 mg/L 02/18/2025 7:21 PM EDT LABORATORY [facility] Blood Venous blood specimen / Unknown Venipuncture / Unknown 02/18/2025 12:04 PM EDT 02/18/2025 12:04 PM EDT us Sunday Peralta PA-C LAB BLOOD ORDERABLES Final Result LABORATORY [facility] [address] [place] [address] * ERYTHROCYTE SEDIMENTATION RATE (ESR) (02/18/2025 12:04 PM EDT) Pathologist [facility] ESR 3 <20 mm/hour 02/18/2025 5:27 PM EDT LABORATORY [facility] Blood Venous blood specimen / Unknown Venipuncture / Unknown 02/18/2025 12:04 PM EDT 02/18/2025 12:04 PM EDT [facility] Alla Abbotto PA-C LAB BLOOD ORDERABLES Final Result Performing Organization Address [facility] de Phone Number LABORATORY [facility] [address] [place] [address] * LDL CHOLESTEROL (DIRECT MEASURE) (02/18/2025 12:04 PM EDT) [facility] LDL Cholesterol (Direct Measure) 128 <=129 mg/dL 02/18/2025 7:21 PM EDT LABORATORY [facility] Comment: LDL Cholesterol Reference Ranges (mg/dL): <70 Target level for high risk ASCVD patient <100 Optimal for general population 100-129 Near optimal for general population 130-159 Borderline high 160-189 High >=190 Very high Blood Venous blood specimen / Unknown Venipuncture / Unknown 02/18/2025 12:04 PM EDT 02/18/2025 12:04 PM EDT [facility] Alla Fabian PA-C LAB BLOOD ORDERABLES Final Result Performing Organization Address [facility] de Phone Number LABORATORY [place] [address] [place] [address] * PT INR (02/18/2025 12:04 PM EDT) Pathologist [facility] Prothrombin Time 12.8 11.6 - 15.2 seconds 02/18/2025 12:51 PM EDT LABORATORY [place] 57-10 INR 1.0 0.8 - 1.2 02/18/2025 12:51 PM EDT LABORATORY [place] 57-10 Blood Venous blood specimen / Unknown Venipuncture / Unknown 02/18/2025 12:04 PM EDT 02/18/2025 12:04 PM EDT Narrative LABORATORY [facility] 57-10 - 02/18/2025 12:51 PM EDT Warfarin Therapy INR: 2.0-3.0 conventional anticoagulation INR: 2.5-3.5 high intensity anticoagulation Sunday Gold Fabian COE-C LAB BLOOD ORDERABLES Final Result Performing Organization Address City/[facility]/ZIP Co de Phone Number LAB[facility]ATORY [facility] [address] [place] [address] * APTT (02/18/2025 12:04 PM EDT) aPTT 28 21 - 38 seconds 02/18/2025 12:52 PM EDT LAB[facility]ATORY [facility] 57-10 Blood Venous blood specimen / Unknown Venipuncture / Unknown 02/18/2025 12:04 PM EDT 02/18/2025 12:04 PM EDT Narrative LAB[facility]ATORY [facility] 57-10 - 02/18/2025 12:52 PM EDT Anticoagulation may affect testing. Refer to [employer] Test Catalog for a list of effects. Result [facility] Sunday Gold Fabian COE-C LAB BLOOD ORDERABLES Final Result Performing Organization Address [facility]/ZIP Co de Phone Number LAB[facility]ATORY [facility] [address] [place] [address] * (ABNORMAL) IRON SCREEN, INCLUDING TIBC (02/18/2025 12:04 PM EDT) Iron 82 45 - 176 ug/dL 02/18/2025 7:21 PM EDT LAB[facility]ORY [facility] Iron Binding Capacity 248(L) 250 - 425 ug/dL 02/18/2025 7:21 PM EDT [facility] Transferrin Saturation Percent 33 15 - 55 % 02/18/2025 7:21 PM EDT [facility] Blood Venous blood specimen / Unknown Venipuncture / Unknown 02/18/2025 12:04 PM EDT 02/18/2025 12:04 PM EDT Sunday Gold Fabian PEARCE LAB BLOOD ORDERABLES Final Result LABORATORY [facility] [address] [place] [address] * MAGNESIUM (02/18/2025 12:04 PM EDT) [facility] Magnesium 2.3 1.5 - 2.6 mg/dL 02/18/2025 7:21 PM EDT LABORATORY [facility] Blood Venous blood specimen / Unknown Venipuncture / Unknown 02/18/2025 12:04 PM EDT 02/18/2025 12:04 PM EDT Sunday Gold Fabian HUFFMAN LAB BLOOD ORDERABLES Final Result Performing Organization Address [facility] de Phone Number LABORATORY [facility] [address] [place] [address] * (ABNORMAL) HEMOGLOBIN A1C (02/18/2025 12:04 PM EDT) [facility] Hemoglobin A1C 10.6(H) 4.0 - 5.6 % 02/18/2025 7:32 PM EDT LABORATORY [facility] Comment:The use of HbA1c to monitor glycemic status is based on normal hemoglobin and HbA composition. This test should not be used in patients with abnormal hemoglobin that affects the half life of the red blood cell or the in vivo glycation rates. Estimated Average Glucose 258(H) <126 mg/dL 02/18/2025 7:32 PM EDT LABORATORY [facility] Blood Venous blood specimen / Unknown Venipuncture / Unknown 02/18/2025 12:04 PM EDT 02/18/2025 12:04 PM EDT Sunday Dailybeatris PEARCE LAB BLOOD ORDERABLES Final Result Performing Organization Address City/[facility]/ZIP Co de Phone Number LABORATORY [facility] [address] [place] [address] * (ABNORMAL) COMPREHENSIVE METABOLIC PANEL (02/18/2025 12:04 PM EDT) [facility] BUN 16 6 - 20 mg/dL 02/18/2025 1:36 PM EDT LABORATORY [place] 57-10 CREATININE 0.7 0.6 - 1.2 mg/dL 02/18/2025 1:36 PM EDT LABORATORY [place] 57-10 EGFR >90 >=60 mL/min 02/18/2025 1:36 PM EDT LAB[facility]ATORY [place] 57-10 Comment:eGFR is calculated b ased on the CKD-EPI 2020 equation. SODIUM 136 135 - 146 mmol/L 02/18/2025 1:36 PM EDT LAB[facility]ORY [facility] 57-10 POTASSIUM 4.1 3.5 - 5.1 mmol/L 02/18/2025 1:36 PM EDT LABORATORY [place] 57-10 CHLORIDE 98 98 - 107 mmol/L 02/18/2025 1:36 PM EDT [facility] 57-10 CO2 28 22 - 32 mmol/L 02/18/2025 1:36 PM EDT LABORATORY [place] 57-10 ANION GAP 10 7 - 15 mmol/L 02/18/2025 1:36 PM EDT LAB[facility]ORY [facility] 57-10 GLUCOSE 347(H) 70 - 120 mg/dL 02/18/2025 1:36 PM EDT LAB[facility] 57-10 Albumin 4.1 3.8 - 5.0 g/dL 02/18/2025 1:36 PM EDT LAB[facility] 57-10 AST 13 10 - 50 U/L 02/18/2025 1:36 PM EDT LAB[facility] 57-10 Alkaline Phosphatase 112 35 - 130 U/L 02/18/2025 1:36 PM EDT [facility] 57-10 Bilirubin, Total 1.1 <=1.2 mg/dL 02/18/2025 1:36 PM EDT LABORATORY [place] 57-10 CALCIUM 9.3 8.4 - 10.2 mg/dL 02/18/2025 1:36 PM EDT LABORATORY [place] 57-10 Protein 6.2 6.0 - 8.3 g/dL 02/18/2025 1:36 PM EDT [facility] 57-10 ALT 15 10 - 50 U/L 02/18/2025 1:36 PM EDT [facility] 57-10 Blood Venous blood specimen / Unknown Venipuncture / Unknown 02/18/2025 12:04 PM EDT 02/18/2025 12:04 PM EDT Sunday Peralta PA-C LAB BLOOD ORDERABLES Final Result LABORATORY [facility]-[address] [place] [address] * EKG (02/18/2025 11:19 AM EDT) 02/18/2025 11:1 9 AM EDT Narrative Procedure Note Rene Villarreal MD - 02/18/2025 11:19 AM EDT REASON FOR STUDY: Annual;Annual CONCLUSIONS: Sinus rhythm with occasional Premature ventricular complexes High QRS voltage may be normal variant or due to lve ST & T wave abnormality, consider inferolateral ischemia Abnormal ECG When compared with ECG of 14-Jun-2023 09:32, Premature ventricular complexes are now Present ST now depressed in Inferior leads T wave inversion now evident in Inferior leads T wave inversion now evident in Lateral leads Ventricular Rate: 76 Atrial Rate: 76 MT Interval: 150 QRS Duration: 102 QT/QTc: 390/438 ms P-R-T Somis: 54 : 48 : 247 degrees Sunday Peralta PA-C EKG Final Resul t Performing Organization Address City/[facility] Co de Phone Number [facility] documented in this encounter Visit Diagnoses Diagnosis DCM (dilated cardiomyopathy) (HCC)- Primary Other primary cardiomyopathies Hyperlipidemia with target LDL less than 100 Other and unspecified hyperlipidemia Idiopathic cardiomyopathy (HCC) Other primary cardiomyopathies Cardiomegaly Dyslipidemia, goal LDL below 70 Other and unspecified hyperlipidemia HTN, goal below 130/80 Unspecified essential hypertension Acute on chronic systolic congestive heart failure (HCC) Acute on chronic systolic heart failure Heart failure, systolic, with acute decompensation (HCC) Acute on chronic systolic heart failure PVC (premature ventricular contraction) Other premature beats Orthopnea Type 2 diabetes mellitus with hemoglobin A1c goal of less than 8.0% (HCC) Hemochromatosis, unspecified hemochromatosis type Encounter for monitoring diuretic therapy Encounter for therapeutic drug monitoring documented in this encounter Advance Directives * [...] Power of Attor annette? No Care Teams Inspector Precision Relationship Specialty Start Date End Date Jazmin Ariza MD [facility] [place] [address] PCP - General Family Medicine 07/07/15 documented as of this encounter"
--- OUTSIDE RECORDS SUMMARY | 2025-03-21 00:18 | External Medical Summary ---
Author Name Unknown Address Unknown Organization [id number][facility] [address] [place] [address] Laboratory Report Ordering Provider Test Date Status OLIVER ALVAREZO 02/18/2025 12:04:05 Final Warfarin Therapy
INR: 2 .0-3.0 conventional anticoagulation
INR: 2.5- 3.5 high intensity anticoagulation Observation Date Value Abnormality Reference (Units ) Status PT 02/18/2025 12:04:05 12.8 11.6-15.2 (seconds) Final INR 02/18/2025 12:04:05 1.0 0.8-1.2 Final Performing Location [facility] 0 - [address] [place] [address]
--- OUTSIDE RECORDS SUMMARY | 2025-03-21 00:18 | External Medical Summary ---
Author Name Unknown Address Unknown Organization [id number]:LABORATORY [place] 57-10 - [address] [place] [address] Laboratory Report Ordering Provider Test Date Status SACHIN ALVAREZ 02/18/2025 12:04:05 Final Anticoagulation may affect t esting. Refer to [facility] Test Catalog for a list of effects. Observation Date Value Abnormality Reference (Units ) Status aPTT panel - Platelet poor plasma 02/18/2025 12:04:05 28 21-38 (seconds) Final Performing Location LABORATORY [place] 57-1 0 - [address] [place] [address]
--- OUTSIDE RECORDS SUMMARY | 2025-03-21 00:18 | External Medical Summary ---
Author Name Unknown Address Unknown Organization [id number] [address] [place] [address] Laboratory Report Ordering Provider Test Date Status SACHIN ALVAREZ 02/18/2025 12:04:05 Final Observation Date Value Abnormality Reference (Units ) Status WBC, Total 02/18/2025 12:04:05 7.39 4.00-10.8 0 (K/uL) Final RBC 02/18/2025 12:04:05 5.31 4.50-5.25 (M/uL) Final Hemoglobin 02/18/2025 12:04:05 16.2 14.0-16.8 (g/dL) Final HCT 02/18/2025 12:04:05 46.2 40.0-48.4 (%) Final MCV 02/18/2025 12:04:05 87.0 82.0-99.5 (fL) Final MCH 02/18/2025 12:04:05 30.5 27.0-34.0 (pg) Final MCHC 02/18/2025 12:04:05 35.1 32.0-36.0 (g/dL) Final RDW 02/18/2025 12:04:05 12.9 11.5-15.5 (%) Final Platelets 02/18/2025 12:04:05 167 140-400 (K /uL) Final MPV 02/18/2025 12:04:05 9.5 6.6-11.1 ( fL) Final Performing [facility] 0 - [address] [place] [address]
--- OUTSIDE RECORDS SUMMARY | 2025-03-21 00:18 | External Medical Summary | Summary of Care ---
Author Name Unknown Organization [facility] Address [address] [facility] [place] [address] Phone [phone] Care Team Providers Care Sap Abap Programmer Name Role Phone Jazmin Ariza MD Primary Care Provider Reason for Visit * Reason Onset Date Comments Pacemaker Check 03/12/2025 Encounter Details Date Type Department Care Team (Late st Contact Info) Description 03/12/2025 Telephone Cardiology, [facility] [address] [place] [phone] Jhon Mitchell, [address] [place] [address] Pacemaker Check Allergies No known active allergiesdocumented as of this encounter (statuses as of 03/17/2025) Medications ASPIRIN 81 MG PO TABS once [...] as of this encounter (statuses as of 03/17/2025) Active Problems Problem Noted Date Diagnosed Date [...] as of this encounter (statuses as of 03/17/2025) Resolved Problems Problem Noted Date Diagnosed Date Resolved Date 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 Please reach out to patient to ensure that he is taking his metoprolol succinate 12.5 mg daily as prescribed. Also it appears that he needs an in person interrogation as he still has AX>B pathways programed. Jhon Mitchell DO documented in this encounter Plan of Treatment Upcoming Encounters Date Type Department Care Team (Late st Contact Info) Description 03/19/2025 9:00 AM EDT [facility] [address] [facility] [place] [phone] Pires, [facility] [place] [address] 03/27/2025 2:30 PM EDT Office Visit Cardiology, [facility] [address] [place] [phone] Sunday Peralta PA-C [address] [place] [address] Health Maintenance Due Date Last Done Comments [...] Power of Attor annette? No Care Teams Sap Abap Programmer Relationship Specialty Start Date End Date Jazmin Ariza MD [address] [place] [address] PCP - General Family Medicine 07/07/15 documented as of this encounter
--- OUTSIDE RECORDS SUMMARY | 2025-03-21 00:18 | External Medical Summary | Summary of Care ---
Author Name Unknown Organization [facility] Address [address] [place] [facility] [place] [facility] [place] [address] Phone [phone] Care Team Providers Care Passenger Service Agent Name Role Phone Jazmin Ariza MD Primary Care Provider Encounter Details Date Type Department Care Team (Late st Contact Info) Description 02/03/2025 Result Scan Unspecified Department <No scans attached> Allergies No known active allergiesdocumented as of this encounter (statuses as of 02/19/2025) Medications ASPIRIN 81 MG PO TABS once daily Active ONETOUCH DELICA LANCETS MISCIndications :LV (left ventricular) mural thrombus As directed - once or twice daily DX: 250.00 [address] 11/20/2011 Active ONETOUCH ULTRA BLUE STRPIndications :LV (left ventricular) mural thrombus TEST ONCE TO TWICE DAILY DX 250.00 100 Strip 5 12/24/2012 Active documented as of this encounter (statuses [...] 03/10/2025 10:30 AM EDT Cardiac Studies Cardiology, [facility] [address] [place] [phone] [facility] [address] [place] [address] 03/27/2025 2:30 PM EDT Office Visit Cardiology, [facility] [address] [place] [phone] Sunday Peralta PA-C [address] [place] [address] Health Maintenance Due Date Last Done Comments [...] 08/19/2011, Additional history exists HbA1c 08/20/2025 02/18/2025, 02/06/2023, 03/21/2019, Additional history exists GFR 02/18/2026 02/18/2025, [...] Procedure Name Priority Date/Time Associated Diagnosis Comments RADIOLOGY SCANNED RESULT 02/03/2025 RADIOLOGY SCANNED RESULT 02/03/2025 documented in this encounter Results * RADIOLOGY SCANNED RESULT (02/03/2025) 02/03/2025 us No Physician Data Unknown DIAGNOSTIC RADIOLOGY S ERVICES Final Result * RADIOLOGY SCANNED RESULT (02/03/2025) 02/03/2025 us No Physician Data Unknown DIAGNOSTIC RADIOLOGY S ERVICES Final Result documented in this encounter Advance Directives * [...] Power of Attor annette? No Care Teams Passenger Service Agent Relationship Specialty Start Date End Date Jazmin Ariza MD [address] [place] [address] PCP - General Family Medicine 07/07/15 documented as of this encounter
--- OUTSIDE RECORDS SUMMARY | 2025-03-21 00:18 | External Medical Summary | Summary of Care ---
Author Name Unknown Organization [facility] Address [address] [facility] [place] [address] Phone [phone] Care Team Providers Care Land Leveler Name Role Phone Jazmin Ariza MD Primary Care Provider Reason for Visit * Reason Onset Date Comments Appointment 03/06/2025 Encounter Details Date Type Department Care Team (Late st Contact Info) Description 03/06/2025 [facility] [address] [place] [phone] [facility] Cardiology [facility] [address] [facility] [place] [address] Appointment Allergies No known active allergiesdocumented as of this encounter (statuses as of 03/06/2025) Medications ASPIRIN 81 MG PO TABS once [...] as of this encounter (statuses as of 03/06/2025) Active Problems Problem Noted Date Diagnosed Date [...] as of this encounter (statuses as of 03/06/2025) Resolved Problems Problem Noted Date Diagnosed Date Resolved Date LV (left ventricular) mural thrombus 03/17/2010 03/26/2012 Certain sequelae of myocardial infarction 03/14/2010 03/17/2010 Overview (02/04/2025): ICD-10 Update of Inactive Term documented as of this encounter (statuses as of 03/06/2025) Immunizations Name Administration Dates Next Due HEP [...] encounter Miscellaneous Notes * Telephone Encounter - Elda Cormier church business administrator - 03/06/2025 2:24 PM EDT Called and spoke with patient, appt rescheduled. Thank you, Elda Cormier Canine Deputy [facility] 03/06/2025,2:24 PM * Telephone Encounter - Sallie Dunn OSA - 03/06/2025 11:06 AM EDT Person calling: Sera Relationship to patient: Phone/Fax to return call: [phone] Reason for call(brief): reschedule Pharmacy: na Provider Name:MTM Detailed message to office:Patient needs to reschedule 03/11 appt. Please advise. Thanks documented in this encounter Plan of Treatment Upcoming Encounters Date Type Department Care Team (Late st Contact Info) Description 03/10/2025 10:30 AM EDT Cardiac Studies Cardiology, [facility] [address] [place] [phone] [facility] [address] [place] [address] 03/19/2025 9:00 AM EDT Telemedicine Cardiology, [facility] [address] [place] [phone] [facility] Card[facility] [address] [place] [address] 03/27/2025 2:30 PM EDT Office Visit Cardiology, [facility] [address] [place] [phone] Sunday Peralta, PAAlexisC [address] [place] [address] Health Maintenance Due Date Last Done Comments [...] Power of Attor annette? No Care Teams Land Leveler Relationship Specialty Start Date End Date Jazmin Ariza MD [address] [place] [address] PCP - General Family Medicine 07/07/15 documented as of this encounter
--- OUTSIDE RECORDS SUMMARY | 2025-03-21 00:18 | External Medical Summary ---
Author Name Unknown Address Unknown Organization K01:[facility]ORY [facility] - [address] [place] [address] Laboratory Report Ordering Provider Test Date Status SACHIN ALVAREZ 02/18/2025 12:04:05 Final Observation Date Value Abnormality Reference (Units ) Status Magnesium 02/18/2025 12:04:05 2.3 1.5-2.6 (m g/dL) Final Performing Location [facility] - [address] [place] [address]
--- OUTSIDE RECORDS SUMMARY | 2025-03-21 00:18 | External Medical Summary ---
Author Name Unknown Address Unknown Organization K01:LABORATORY [facility] - [address] [place] [address] Laboratory Report Ordering Provider Test Date Status ANTONIOSACHIN 02/18/2025 12:04:05 Final Exclude Heart Failure: <300 pg/mL
Diagnose Heart Failure:
Age <50 yr: >450 pg/mL
50-75 yr: >900 pg/mL
>75 yr: >1800 pg/mL
GFR is 30-59 mL/min: >1200 pg/mL or Age- adjusted values
GFR <30 mL/min: do not use, not reliable

Prognostic threshold: 1000 pg/mL Observation Date Value Abnormality Reference (Units ) Status BNP, Pro-hormone 02/18/2025 12:04:05 1710 Above high no rmal <300 (pg/mL) Final Performing Location LABORATORY [facility] - [address] [place] [address]
--- OUTSIDE RECORDS SUMMARY | 2025-03-21 00:18 | External Medical Summary | Summary of Care ---
Author Name Unknown Organization [facility] Address [address] [facility] [place] [address] Phone [phone] Care Team Providers Care Cotton Jammer Name Role Phone Jazmin Ariza MD Primary Care Provider Reason for Visit * Reason Onset Date Comments Test Results 02/18/2025 Encounter Details Date Type Department Care Team (Late st Contact Info) Description 02/18/2025 Telephone Cardiology, [facility] [address] [place] [phone] Sunday Peralta PA-Col[place] [address] [place] [address] Test Results Allergies No known active allergiesdocumented as of [...] encounter Miscellaneous Notes * Telephone Encounter - Levi Keenan LPN - 02/18/2025 4:35 PM EDT Patient aware per Sunday. ----- Message from Sunday Peralta sent at 02/18/2025 4:18 PM EDT ----- Chest x-ray with small left pleural effusion documented in this encounter Plan of Treatment Upcoming Encounters Date Type Department Care Team (Late st Contact Info) Description 03/10/2025 10:30 AM EDT Cardiac Studies Cardiology, [facility] [address] [place] [phone] [facility] [address] [place] [address] 03/27/2025 2:30 PM EDT Office Visit Cardiology, [facility] [address] [place] [phone] Sunday Peralta PA-C [address] [place] [address] Health Maintenance Due Date Last Done Comments [...] Tdap) 12/20/2020 12/20/2010, 04/05/2002 COVID-19 Vaccine ( - season) 2024 Influenza Vaccine (FLU shot) (Season [...] Power of Attor annette? No Care Teams Cotton Jammer Relationship Specialty Start Date End Date Jazmin Ariza MD [address] [place] [address] PCP - General Family Medicine 07/07/15 documented as of this encounter
--- OUTSIDE RECORDS SUMMARY | 2025-03-21 00:18 | External Medical Summary ---
Author Name Unknown Address Unknown Organization K01:LABORATORY [facility] - [address] [facility] [address] Laboratory Report Ordering Provider Test Date Status SACHIN ALVAREZ 02/18/2025 12:04:05 Final Observation Date Value Abnormality Reference (Units ) Status Iron 02/18/2025 12:04:05 82 45-176 (ug/dL) Final Iron-binding capacity 02/18/2025 12:04:05 248 Below low normal 250-425 (ug/dL) Final Transferrin Sat % 02/18/2025 12:04:05 33 15-55 (%) Final Performing Location LABORATORY C - [address] [facility] [address]
--- OUTSIDE RECORDS SUMMARY | 2025-03-21 00:18 | External Medical Summary ---
Author Name Unknown Address Unknown Organization [id number]:[facility] [place] [address] [facility] [address] Laboratory Report Ordering Provider Test Date Status SACHIN ALVAREZ 02/18/2025 12:04:05 Final Observation Date Value Abnormality Reference (Units) Status PARAPROTEIN NORMAL/ABNORMAL 02/18/2025 12:04:05 Normal Normal Final Protein 02/18/2025 12:04:05 5.9 Below low normal 6.0-8.3 (g/dL) Final Albumin/Protein.total [Pure mass fraction] in Serum or Plasma by Electrophoresis 02/18/2025 12:04:05 3.20 Below low normal 3.30-4.40 (g/dL) Final Alpha 1 globulin/Protein.tota l [Pure mass fraction] in Serum or Plasma by Electrophoresis 02/18/2025 12:04:05 0.20 0.10-0.30 (g/dL) Final Alpha 2 globulin/Protein.tota l [Pure mass fraction] in Serum or Plasma by Electrophoresis 02/18/2025 12:04:05 0.89 0.60-1.00 (g/dL) Final Beta globulin/Protein.tota l [Pure mass fraction] in Serum or Plasma by Electrophoresis 02/18/2025 12:04:05 0.88 0.80-1.30 (g/dL) Final Gamma globulin/Protein.tota l [Pure mass fraction] in Serum or Plasma by Electrophoresis 02/18/2025 12:04:05 0.72 0.70-1.70 (g/dL) Final Protein Fractions [Interpretation] in Serum or Plasma by Electrophoresis Narrative 02/18/2025 12:04:05 No paraprotein detected. Final Performing Location [facility] [place] [address] [facility] [address]
--- OUTSIDE RECORDS SUMMARY | 2025-03-21 00:18 | External Medical Summary | Summary of Care ---
Author Name Unknown Organization [facility] Address [address] [place] [address] Phone [phone] Care Team Providers Care Fitting Room Associate Name Role Phone Jazmin Ariza MD Primary Care Provider Reason for Visit * Reason Onset Date Comments Test Results 02/20/2025 Encounter Details Date Type Department Care Team (Late st Contact Info) Description 02/20/2025 Telephone Cardiology, [facility] [address] [place] [phone] Sunday Peralta PA-[place] [address] [place] [address] Test Results Allergies No known active allergiesdocumented as of this encounter (statuses as of 03/03/2025) Medications ASPIRIN 81 MG PO TABS once [...] as of this encounter (statuses as of 03/03/2025) Active Problems Problem Noted Date Diagnosed Date [...] as of this encounter (statuses as of 03/03/2025) Resolved Problems Problem Noted Date Diagnosed Date Resolved Date LV (left ventricular) mural thrombus 03/17/2010 03/26/2012 Certain sequelae of myocardial infarction 03/14/2010 03/17/2010 Overview (02/04/2025): ICD-10 Update of Inactive Term documented as of this encounter (statuses as of 03/03/2025) Immunizations Name Administration Dates Next Due HEP [...] encounter Miscellaneous Notes * Telephone Encounter - Lizzeth Lee LPN - 02/20/2025 3:48 PM EDT Spoke with Srea/ and EC by phone, gave information in this encounter. Verbalized understanding Agreed to plan of care. Orders and meds pended. Sent all in a letter per Sera's request. * Telephone Encounter - Tahira Lemon LPN - 02/20/2025 2:04 PM EDT Called pt, no answer, LMOM * Telephone Encounter - Tahira Lemon LPN - 02/20/2025 2:02 PM EDT ----- Message from Sunday Peralta sent at 02/20/2025 12:50 PM EDT ----- Recheck basic metabolic panel at follow-up Restart atorvastatin, 40 mg/day. Check a fasting lipid panel with direct LDL and CMP in 3 months. Follow up with PCP, RE: uncontrolled type 2 diabetes mellitus Recommend follow-up with GI, RE: hemochromatosis documented in this encounter Plan of Treatment Upcoming Encounters Date Type Department Care Team (Late st Contact Info) Description 03/10/2025 10:30 AM EDT Cardiac Studies Cardiology, [facility] [address] [place] [phone] [facility] [address] [place] [address] 03/11/2025 1:00 PM EDT Telemedicine Cardiology, [facility] [address] [place] [phone] [facility] Cardiology [facility] [address] [place] [address] 03/27/2025 2:30 PM EDT Office Visit Cardiology, [facility] [address] [place] [phone] Sunday Peralta PA-C [address] [place] [address] Scheduled Orders Name Type Priority Associated Diagnoses Orde r Schedule BASIC METABOLIC PANEL Lab Routine Heart failure, systolic, with acute decompensation (HCC) Expected: 03/27/2025 (Approximate), Expires: 02/20/2026 LIPID PANEL WITH DIRECT LDL IF TG IS HIGH Lab Routine Hyperlipidemia with target LDL less than 100 Expected: 05/22/2025, Expires: 02/20/2026 COMPREHENSIVE METABOLIC PANEL Lab Routine Hyperlipidemia with target LDL less than 100 Expected: 05/22/2025, Expires: 02/20/2026 Health Maintenance Due Date Last Done Comments [...] as of this encounter Visit Diagnoses Diagnosis Heart failure, systolic, with acute decompensation (HCC)- Primary Acute on chronic systolic heart failure Hyperlipidemia with target LDL less than 100 Other and unspecified hyperlipidemia Idiopathic cardiomyopathy (HCC) Other primary cardiomyopathies Cardiomegaly documented in this encounter Advance Directives * [...] Power of Attor annette? No Care Teams Fitting Room Associate Relationship Specialty Start Date End Date Jazmin Ariza MD [address] [place] [address] PCP - General Family Medicine 07/07/15 documented as of this encounter
--- OUTSIDE RECORDS SUMMARY | 2025-03-21 00:18 | External Medical Summary ---
Author Name Unknown Address Unknown Organization [id number]:[facility]ATORY [facility] - [address] [place] [address] Laboratory Report Ordering Provider Test Date Status SACHIN ALVAREZ 02/18/2025 12:04:05 Final Observation Date Value Abnormality Reference (Units ) Status BUN 02/18/2025 12:04:05 16 6-20 (mg/dL) Final Creatinine 02/18/2025 12:04:05 0.7 0.6-1.2 (mg/dL) Final Glomerular filtration rate/1.73 sq M.predicted [Volume Rate/Area] in Serum, Plasma or Blood by Creatinine-based formula (CKD-EPI) 02/18/2025 12:04:05 >90 >=60 (mL/min) Final eGFR is calculated based on the CKD-EPI 2020 equation. Sodium 02/18/2025 12:04:05 136 135-146 (m mol/L) Final Potassium 02/18/2025 12:04:05 4.1 3.5-5.1 (m mol/L) Final Cl 02/18/2025 12:04:05 98 98-107 (mm ol/L) Final CO2 02/18/2025 12:04:05 28 22-32 (mmo l/L) Final Anion gap 02/18/2025 12:04:05 10 7-15 (mmol /L) Final Glucose 02/18/2025 12:04:05 347 Above high normal 70 -120 (mg/dL) Final Albumin 02/18/2025 12:04:05 4.1 3.8-5.0 (g /dL) Final AST (Aspartate aminotransferase) 02/18/2025 12:04:05 13 10-50 (U/L) Fin al Alk Phos 02/18/2025 12:04:05 112 35-130 (U/ L) Final Bilirubin, Total 02/18/2025 12:04:05 1.1 <=1 .2 (mg/dL) Final Calcium 02/18/2025 12:04:05 9.3 8.4-10.2 ( mg/dL) Final Protein 02/18/2025 12:04:05 6.2 6.0-8.3 (g /dL) Final ALT (Alanine aminotransferase) 02/18/2025 12:04:05 15 10-50 (U/L) Aleksander degroot Performing Location LAB[facility]ATORY [facility] - [address] [facility] [address]
--- OUTSIDE RECORDS SUMMARY | 2025-03-21 00:18 | External Medical Summary ---
Author Name Unknown Address Unknown Organization [id number]:LABORATORY [facility] - [address] [facility] [address] Laboratory Report Ordering Provider Test Date Status SACHIN ALVAREZ 02/18/2025 12:04:05 Final Observation Date Value Abnormality Reference (Units ) Status TSH 02/18/2025 12:04:05 3.24 0.27-4.20 (uIU/mL) Final Performing Location [facility] - [address] [facility] [address]
--- OUTSIDE RECORDS SUMMARY | 2025-03-21 00:18 | External Medical Summary | Summary of Care ---
Author Name Unknown Organization [facility] Address [address] [facility] [place] [address] Phone [phone] Care Team Providers Care Health Systems Analyst Name Role Phone Jazmin Ariza MD Primary Care Provider Encounter Details Date Type Department Care Team (Late st Contact Info) Description 03/12/2025 Result Scan Unspecified Department Jhon Mitchell, DO [address] [place] [address] <No scans attached> Allergies No known active allergiesdocumented as of this encounter (statuses as of 03/13/2025) Medications ASPIRIN 81 MG PO TABS once [...] as of this encounter (statuses as of 03/13/2025) Active Problems Problem Noted Date Diagnosed Date [...] as of this encounter (statuses as of 03/13/2025) Resolved Problems Problem Noted Date Diagnosed Date Resolved Date LV (left ventricular) mural thrombus 03/17/2010 03/26/2012 Certain sequelae of myocardial infarction 03/14/2010 03/17/2010 Overview (02/04/2025): ICD-10 Update of Inactive Term documented as of this encounter (statuses as of 03/13/2025) Immunizations Name Administration Dates Next Due HEP [...] Info) Description 03/19/2025 9:00 AM EDT Telemedicine Cardiology, [facility] [address] [place] [phone] [facility] Cardiology [facility] [address] [place] [address] 03/27/2025 2:30 PM EDT Office Visit Cardiology, [facility] [address] [place] [phone] Sunday Peralta [facility] [address] [place] [address] Health Maintenance Due Date Last Done Comments [...] or Tdap) 12/20/2020 12/20/2010, 04/05/2002 COVID-19 Vaccine (2023- season) 2024 Influenza Vaccine (FLU shot) (Season [...] Procedure Name Priority Date/Time Associated Diagnosis Comments CARDIOLOGY SCANNED RESULT 03/12/2025 documented in this encounter Results * CARDIOLOGY SCANNED RESULT (03/12/2025) 03/12/2025 us Jhon Mitchell DO OTHER Final Result documented in this encounter Advance [...] Power of Attor annette? No Care Teams Health Systems Analyst Relationship Specialty Start Date End Date Jazmin Ariza MD [address] [place] [address] PCP - General Family Medicine 07/07/15 documented as of this encounter
--- OUTSIDE RECORDS SUMMARY | 2025-03-21 00:19 | External Medical Summary ---
Author Name Unknown Address Unknown Organization K01:[facility]AT[facility] - [address] [place] [address] Laboratory Report Ordering Provider Test Date Status SACHIN ALVAREZ 02/18/2025 12:04:05 Final Observation Date Value Abnormality Reference (Units ) Status Ferritin 02/18/2025 12:04:05 838 Above high normal 30 -400 (ng/mL) Final Performing Location [facility] - [address] [place] [address]
--- OUTSIDE RECORDS SUMMARY | 2025-03-21 00:19 | External Medical Summary ---
Author Name Unknown Address Unknown Organization K01:[facility] [place] [address] [place] [address] Laboratory Report Ordering Provider Test Date Status SACHIN ALVAREZ 02/18/2025 12:04:05 Final Observation Date Value Abnormality Reference (Units ) Status Erythrocyte sedimentation rate by Photometric method 02/18/2025 12:04:05 3 <20 (mm/hour) Final Performing Location [facility] [address] [facility] [address]
--- OUTSIDE RECORDS SUMMARY | 2025-03-21 00:19 | External Medical Summary ---
Author Name Unknown Address Unknown Organization [id number]:[facility] - [address] [place] [address] Laboratory Report Ordering Provider Test Date Status SACHIN ALVAREZ 02/18/2025 12:04:05 Final Observation Date Value Abnormality Reference (Units ) Status CRP, low-sensitivity 02/18/2025 12:04:05 <3 <=5 (mg/L) Final Performing Location LAB[facility] - [address] [place] [address]
--- OUTSIDE RECORDS SUMMARY | 2025-03-21 00:19 | External Medical Summary ---
Author Name Unknown Address Unknown Organization [id number]:LABORATORY [facility] - [address] [place] [address] Laboratory Report Ordering Provider Test Date Status SACHIN ALVAREZ 02/18/2025 12:04:05 Final Observation Date Value Abnormality Reference (Units ) Status SYNC LEUKOCYTES IN BLOOD BY AUTOMATED COUNT 02/18/2025 12:04:05 7.39 4.00-10.80 (K/uL) Final Segs 02/18/2025 12:04:05 74.4 40.0-75.0 (%) Final Lymphs % 02/18/2025 12:04:05 16.4 Below low normal 18.0-42.0 (%) Final Monos 02/18/2025 12:04:05 7.7 1.0-11.0 (%) Final Eosinophils 02/18/2025 12:04:05 1.2 0.0-6.0 (%) Final Basos 02/18/2025 12:04:05 0.3 0.0-2.0 (%) Final Absolute Segs 02/18/2025 12:04:05 5.50 1.80-7.70 (K/uL) Final Lymphs, absolute 02/18/2025 12:04:05 1.21 1.00-4.80 (K/ul) Final Monos, Abs 02/18/2025 12:04:05 0.57 0.00-1.10 (K/uL) Final Eos, Abs 02/18/2025 12:04:05 0.09 0.00-0.70 (K/uL) Final Basos, Abs 02/18/2025 12:04:05 0.02 0.00-0.20 (K/uL) Final Performing Location LABORATORY [facility] - [address] [place] [address]
[2025-03-21 06:48] LABS: BUN Creatinine Ratio 26.3 (10-20); Calcium 8.8 mg/dl (8.6-10.3); Creatinine Clr Calc Pharmacy 84.4 ml/min; Potassium 3.9 mmol/L (3.5-5.1)
[2025-03-21 07:55] LABS: Estimated Average Glucose 272 mg/dl; Hemoglobin A1C 11.1 % (4.5-5.6)
[2025-03-21] MEDS: ATORVASTATIN 40 MG TAB PO SCH (09:09)
[2025-03-21] MEDS: EMPAGLIFLOZIN 10 MG TAB PO SCH (09:09)
[2025-03-21] MEDS: lisinopril 10 MG TAB PO SCH (09:09)
[2025-03-21] MEDS: DIGOXIN 0.125 MG TAB PO SCH (09:09)
[2025-03-21] MEDS: GLIMEPIRIDE 2 MG TAB PO SCH (09:09)
[2025-03-21] MEDS: ASPIRIN 81 MG ECTAB PO SCH (09:09)
[2025-03-21] MEDS: FUROSEMIDE INJ 20 MG/2 ML VIAL IV SCH (09:13)
--- NOTE | 2025-03-21 15:13 | Hospitalist Progress Note ---
Date of Service March 21, 2025 Assessment & Plan (1) CHF (congestive heart failure), NYHA class III: Plan: 64 years old male with PMH of FULL CODE @ home, osteoarthritis s/p left shoulder arthroscopy (April 2016), diet-uncontrolled, drug-naive DM2 with HbA1c 11.1% (03/21/2025, 5:50am), hemochromatosis s/p phlebotomy with subsequent development of infiltrative cardiomyopathy characterized by chronic systolic CHF with reduced LVEF 10-15% and large LV thrombus (as noted in March 2010, s/p cardiac catheterization (03/11/2010) with mild non-occlusive CAD, mild pulmonary HTN with peak PAP 40/24; CVP mildly elevated at 13, as per CARDS Dr. Moran), s/p single chamber AICD (10/25/2010, EPS Dr. Chloé Guillaume), s/p generator exchange (09/30/2019, 9:05am), chronic systolic CHF with reduced LVEF < 20%, LV severely dilated with normal LV wall thickness, no LV thrombus, severe LA dilation with grade III LV diastolic dysfunction, moderate MR, and moderate pulmonary HTN (as noted on 02/18/2025 TTE, CARDS Mr. Sunday Peralta PA-C) with medication non-compliance (cf., not taking ASA, carvedilol, lisinopril, digoxin on a regular/daily basis), who was admitted to the inpatient hospitalist service @ [facility] on 03/20/2025 with the following diagnosis: 1. Acute exacerbation of chronic systolic CHF with reduced LVEF < 20% and chronic diastolic CHF with grade III LV diastolic dysfunction (as reported on 02/18/2025 TTE, CARDS Sunday PORTIA Peralta). RESOLVING very well on 03/21/2025 with patient reporting that he is breathing 50% better today (03/21/2025) than yesterday (03/20/2025) on lasix 20mg IV daily, carvedilol 6.25mg PO bid, digoxin 0.25mg PO qam, empagliflozin 10mg PO qam, lisinopril 10mg PO qam, daily weights, and strict I/O. Other secondary medical issues include: 2. Diet-uncontrolled, drug-naive DM2 with HbA1c 11.1% (03/21/2025, 5:50am). cf., glucose 236 mg/dL (03/20/2025, 12:18pm). cf., glucose 240 mg/dL (03/21/2025, 5:50am). Continue carbohydrate consistent diet, glimepiride 4mg PO qam, insulin sliding scale qac + qhs, and POC glucose qac + qhs. 3. Hypotension with BP 83/57 (03/21/2025, 3:44pm). Asymptomatic. Patient reports chronically low BP at home and remains asymptomatic at home and in [facility] with his chronically low BP. I surmise that patient's hypotension is coincident with his chronic systolic CHF with reduced LVEF < 20% and chronic diastolic CHF with grade III LV diastolic dysfunction (as reported on 02/18/2025 TTE, CARDS Mr. Sunday Peralta PA-C). In sum, patient's heart is simply too weak to generate sufficient force and BP remains low. (2) Type II diabetes mellitus: (3) Hypertension: (4) Idiopathic cardiomyopathy: Admission and Anticipated Discharge Date Admission Date: March 20, 2025 Subjective "I am breathing 50% better today (03/21/2025) than yesterday (03/20/2025). No coughing or wheeze. I think I will be better tomorrow and can go home tomorrow." Review of Systems Constitutional: Patient denies antecedent/coincident fevers, chills, diaphoresis, cough, wheeze, sore throat, hemoptysis, chest pains, palpitations, pleurisy, nausea, vomiting, diarrhea, abdominal pain, pelvic pain, hematemesis, hematochezia, melena, hematuria, dysuria, frequency, urgency, headaches, dizziness, lightheadedness, visual changes, hearing changes, syncope, falls, trauma, travel history, sick contacts, or food/drug ingestions novel or new. All other review of systems are reported as negative by the patient on 03/21/2025. Physical Exam Constitutional: General: Comfortable, coherent, and cooperative. Wide awake and alert. Not confused, lethargic, or obtunded. Patient speaks in complete, fluent, and articulate sentences without pause, interruption, cough, or wheeze. HEENT: Normocephalic, atraumatic. No nystagmus, gaze paresis, anisocoria, miosis, mydriasis, hyphema, scleral injection, conjunctivitis, or pterygium. No otorrhea or rhinorrhea. No pharyngeal erythema, edema, or discharge. Neck: Supple, no stridor, bruit, goiter, or hepato-jugular reflux. Jugular venous pressure is estimated to be 3 cm above the sternal angle of Loki, which in turn, is 5 cm above the level of the right atrium; with jugular venous pressure estimated to be 8 cm, then, there is no jugular venous distention on 03/21/2025. Lymphatics: No cervical (anterior/posterior), supraclavicular, infracla vicular, axillary, epitrochlear, or inguinal adenopathy. Chest: Symmetric rise and fall with respirations. Non-tender to palpation. Lungs: Clear to auscultation and percussion. Heart: Regular rate and rhythm. S1 and S2 noted. No S3 or S4 summation gallop. No tripartite friction rub. Grade II/ early systolic murmur @ LLSB without radiation to the carotids, axilla, or back, and which remains invariant in regards to the respiratory cycle. Abdomen: Soft, non-tender, non-distended. No rebound, guarding, Lin's sign, or organomegaly. Bowel sounds auscultated in all 4 quadrants. Extremities: No clubbing, cyanosis. 2+ pitting pedal edema with extension to the bilateral mid-shins, sparing the bilateral upper shins, knees, hips, th ighs, abdomen. 2+ pedal pulses bilaterally. Skin: No decubitus ulcer, exanthem, or enanthem. Genito-urinary: No urethral discharge. No alston catheter. Neurology: Alert and oriented in regards to person, place, time, and situation. DTR+ and symmetric. 5/5 motor strength in all 4 extremities, both proximally and distally. No pronator drift. No facial droop. No dysarthria. Psychiatry: No homicidal ideation. No suicidal ideation. No flat affect; smiles appropriately. Results & Data Results & Data Vital Signs (Past 12 Hours) Vital Signs Temp Pulse Pulse Resp BP Pulse Ox O2 Del Method 03/21/25 13:02 66 03/21/25 10:58 36.3 C L 84 18 82/59 L 96 Nasal Cannula 03/21/25 10:17 03/21/25 07:47 36.4 C L 93 H 18 102/70 96 Nasal Cannula 03/21/25 06:00 71 03/21/25 05:16 36.5 C 84 18 97/64 L 96 Nasal Cannula O2 Flow Rate 03/21/25 13:02 03/21/25 10:58 2 03/21/25 10:17 2 03/21/25 07:47 2 03/21/25 06:00 03/21/25 05:16 2 Laboratory Results BNP 1454 pg/mL (03/20/2025, 12:18pm). BNP 1140 pg/mL (03/21/2025, 8:29am). Troponin-I 19 pg/mL (03/20/2025, 12:18pm). HbA1c 8.5% (01/02/2023, 12:30pm) HbA1c 11.1% (03/21/2025, 5:50am). glucose 236 mg/dL (03/20/2025, 12:18pm). glucose 240 mg/dL (03/21/2025, 5:50am). Lactic acid #1 1.0 mmol/L (03/21/2025, 8:29am). Procalcitonin #1 < 0.02 ng/mL (03/20/2025, 12:18pm). Procalcitonin #2 < 0.02 ng/mL (03/21/2025, 8:29am). Diagnostic Findings Portable CXR (03/20/2025): Cardiomegaly with mild pulmonary vascular congestion and bilateral effusions. No infiltrate or pneumothorax (by my review). EKG (03/20/2025, 12:04pm): sinus tachy @ 102, DE 144, QTC 505, LVH, no LAE, no acute ST elevations/depressions; TWI in V5, V6 (by my review). EKG (09/30/2019, 8:12am): sinus ashwin @ 48, DE 156, QTC 359, no LVH, no LAE, no acute ST elevations/depressions; TWI in V2-V6 (by my review). PG Care Time/CCT Total # of Minutes Spent Total Time Spent with Patient: Total time spent is greater than 50% in coordination of care (as documented) at patient's floor/unit and/or counseling patient: Coding Level of Care Code 24713 SUB INP/OBS CARE 2/35MIN Diagnoses CHF (congestive heart failure), NYHA class III I50.9 Congestive heart failure type: unspecified Type II diabetes mellitus E11.9 Hypertension I10 Idiopathic cardiomyopathy I42.8 (1) CHF (congestive heart failure), NYHA class III Congestive heart failure type: unspecified Qualified Code(s): I50.9 - Heart failure, unspecified
--- NOTE | 2025-03-22 17:33 | Hospitalist Progress Note ---
Date of Service March 22, 2025 Assessment & Plan (1) CHF (congestive heart failure), NYHA class III: Plan: 64 years old male with PMH of FULL CODE @ home, osteoarthritis s/p left shoulder arthroscopy (April 2016), diet-uncontrolled, drug-naive DM2 with HbA1c 11.1% (03/21/2025, 5:50am), hemochromatosis s/p phlebotomy with subsequent development of infiltrative cardiomyopathy characterized by chronic systolic CHF with reduced LVEF 10-15% and large LV thrombus (as noted in March 2010, s/p cardiac catheterization (03/11/2010) with mild non-occlusive CAD, mild pulmonary HTN with peak PAP 40/24; CVP mildly elevated at 13, as per CARDS Dr. Moran), s/p single chamber AICD (10/25/2010, EPS Dr. Chléo Guillaume), s/p generator exchange (09/30/2019, 9:05am), chronic systolic CHF with reduced LVEF < 20%, LV severely dilated with normal LV wall thickness, no LV thrombus, severe LA dilation with grade III LV diastolic dysfunction, moderate MR, and moderate pulmonary HTN (as noted on 02/18/2025 TTE, CARDS Mr. Sunday Peralta PA-C) with medication non-compliance (cf., not taking ASA, carvedilol, lisinopril, digoxin on a regular/daily basis), who was admitted to the inpatient hospitalist service @ [facility] on 03/20/2025 with the following diagnosis: 1. Acute exacerbation of chronic systolic CHF with reduced LVEF < 20% and chronic diastolic CHF with grade III LV diastolic dysfunction (as reported on 02/18/2025 TTE, CARDS Sunday PORTIA Peralta). RESOLVING very well on 03/21/2025 and on 03/22/2025 with patient reporting that he is breathing 70% better today (03/22/2025) than two days ago (03/20/2025) on lasix 20mg IV daily, carvedilol 6.25mg PO bid, digoxin 0.25mg PO qam, empagliflozin 10mg PO qam, lisinopril 10mg PO qam, daily weights, and strict I/O. Other secondary medical issues include: 2. Diet-uncontrolled, drug-naive DM2 with HbA1c 11.1% (03/21/2025, 5:50am). cf., glucose 236 mg/dL (03/20/2025, 12:18pm). cf., glucose 240 mg/dL (03/21/2025, 5:50am). cf., glucose 172 mg/dL (03/22/2025, 8:12am). cf., glucose 162 mg/dL (03/22/2025, 12:17pm). cf., glucose 125 mg/dL (03/22/2025, 5:05pm). Continue carbohydrate consistent diet, glimepiride 4mg PO qam, insulin sliding scale qac + qhs, and POC glucose qac + qhs. 3. Hypotension with BP 83/57 (03/21/2025, 3:44pm). Asymptomatic. Patient reports chronically low BP at home and remains asymptomatic at home and in [facility] with his chronically low BP. I surmise that patient's hypotension is coincident with his chronic systolic CHF with reduced LVEF < 20% and chronic diastolic CHF with grade III LV diastolic dysfunction (as reported on 02/18/2025 TTE, CARDS Mr. Sunday Peralta PA-C). In sum, patient's heart is simply too weak to generate sufficient force and BP remains low. (2) Type II diabetes mellitus: (3) Hypertension: (4) Idiopathic cardiomyopathy: Admission and Anticipated Discharge Date Admission Date: March 20, 2025 Subjective "I am breathing 70% better today (03/22/2025) than two days ago, when I came into the hospital (03/20/2025). No coughing or wheeze. I think I will be better tomorrow and can go home tomorrow." Review of Systems Constitutional: Patient denies antecedent/coincident fevers, chills, diaphoresis, cough, wheeze, sore throat, hemoptysis, chest pains, palpitations, pleurisy, nausea, vomiting, diarrhea, abdominal pain, pelvic pain, hematemesis, hematochezia, melena, hematuria, dysuria, frequency, urgency, headaches, dizziness, lightheadedness, visual changes, hearing changes, syncope, falls, trauma, travel history, sick contacts, or food/drug ingestions novel or new. All other review of systems are reported as negative by the patient on 03/22/2025. Physical Exam Constitutional: General: Comfortable, coherent, and cooperative. Wide awake and alert. Not confused, lethargic, or obtunded. Patient speaks in complete, fluent, and articulate sentences without pause, interruption, cough, or wheeze. HEENT: Normocephalic, atraumatic. No nystagmus, gaze paresis, anisocoria, miosis, mydriasis, hyphema, scleral injection, conjunctivitis, or pterygium. No otorrhea or rhinorrhea. No pharyngeal erythema, edema, or discharge. Neck: Supple, no stridor, bruit, goiter, or hepato-jugular reflux. Jugular venous pressure is estimated to be 3 cm above the sternal angle of Loki, which in turn, is 5 cm above the level of the right atrium; with jugular venous pressure estimated to be 8 cm, then, there is no jugular venous distention on 03/22/2025. Lymphatics: No cervical (anterior/posterior), supraclavicular, infraclavicular, axillary, epitrochlear, or inguinal adenopathy. Chest: Symmetric rise and fall with respirations. Non-tender to palpation. Lungs: Clear to auscultation and percussion. Heart: Regular rate and rhythm. S1 and S2 noted. No S3 or S4 summation gallop. No tripartite friction rub. Grade II/ early systolic murmur @ LLSB without radiation to the carotids, axilla, or back, and which remains invariant in regards to the respiratory cycle. Abdomen: Soft, non-tender, non-distended. No rebound, guarding, Lin's sign, or organomegaly. Bowel sounds auscultated in all 4 quadrants. Extremities: No clubbing, cyanosis. 2+ pitting pedal edema with extension to the bilateral mid-shins, sparing the bilateral upper shins, knees, hips, thighs, abdomen. 2+ pedal pulses bilaterally. Skin: No decubitus ulcer, exanthem, or enanthem. Genito-urinary: No urethral discharge. No alston catheter. Neurology: Alert and oriented in regards to person, place, time, and situation. DTR+ and symmetric. 5/5 motor strength in all 4 extremities, both proximally and distally. No pronator drift. No facial droop. No dysarthria. Psychiatry: No homicidal ideation. No suicidal ideation. No flat affect; smiles appropriately. Results & Data Results & Data Vital Signs (Past 12 Hours) Vital Signs Temp Pulse Pulse Resp BP Pulse Ox O2 Del Method 03/22/25 15:36 36.8 C 62 16 89/64 L 93 Room Air 03/22/25 13:02 55 L 03/22/25 12:10 36.5 C 88 20 86/52 L 95 Room Air 03/22/25 08:39 82 03/22/25 07:59 36.4 C L 80 20 94/62 L 94 Room Air 03/22/25 06:00 70 Laboratory Results BNP 1454 pg/mL (03/20/2025, 12:18pm). BNP 1140 pg/mL (03/21/2025, 8:29am). BNP 779 pg/mL (03/22/2025, 9:16am). Troponin-I 19 pg/mL (03/20/2025, 12:18pm). HbA1c 8.5% (01/02/2023, 12:30pm) HbA1c 11.1% (03/21/2025, 5:50am). glucose 236 mg/dL (03/20/2025, 12:18pm). glucose 240 mg/dL (03/21/2025, 5:50am). Lactic acid #1 1.0 mmol/L (03/21/2025, 8:29am). Procalcitonin #1 < 0.02 ng/mL (03/20/2025, 12:18pm). Procalcitonin #2 < 0.02 ng/mL (03/21/2025, 8:29am) Diagnostic Findings Portable CXR (03/20/2025): Cardiomegaly with mild pulmonary vascular congestion and bilateral effusions. No infiltrate or pneumothorax (by my review). EKG (03/20/2025, 12:04pm): sinus tachy @ 102, MT 144, QTC 505, LVH, no LAE, no acute ST elevations/depressions; TWI in V5, V6 (by my review). EKG (09/30/2019, 8:12am): sinus ashwin @ 48, MT 156, QTC 359, no LVH, no LAE, no acute ST elevations/depressions; TWI in V2-V6 (by my review). PG Care Time/CCT Total # of Minutes Spent Total Time Spent with Patient: Total time spent is greater than 50% in coordination of care (as documented) at patient's floor/unit and/or counseling patient: Coding Level of Care Code 89001 SUB INP/OBS CARE 2/35MIN Diagnoses CHF (congestive heart failure), NYHA class III I50.9 Congestive heart failure type: unspecified Type II diabetes mellitus E11.9 Hypertension I10 Idiopathic cardiomyopathy I42.8 (1) CHF (congestive heart failure), NYHA class III Congestive heart failure type: unspecified Qualified Code(s): I50.9 - Heart failure, unspecified
[2025-03-23 01:35] LABS: BUN Creatinine Ratio 35.6 (10-20); Calcium 8.6 mg/dl (8.6-10.3); Magnesium 2.3 mg/dl (1.7-2.4); Potassium 3.7 mmol/L (3.5-5.1)
--- NOTE | 2025-03-23 07:57 | Discharge Summary ---
Discharge Summary Date of Service March 23, 2025 Principal Dx & Hospital Course #1 = Principal Diagnosis (1) CHF (congestive heart failure), NYHA class III: 64 years old male with PMH of FULL CODE @ home, osteoarthritis s/p left shoulder arthroscopy (April 2016), diet-uncontrolled, drug-naive DM2 with HbA1c 11.1% (03/21/2025, 5:50am), hemochromatosis s/p phlebotomy with subsequent development of infiltrative cardiomyopathy characterized by chronic systolic CHF with reduced LVEF 10-15% and large LV thrombus (as noted in March 2010, s/p cardiac catheterization (03/11/2010) with mild non-occlusive CAD, mild pulmonary HTN with peak PAP 40/24; CVP mildly elevated at 13, as per CARDS Dr. Moran), s/p single chamber AICD (10/25/2010, EPS Dr. Chloé Guillaume), s/p generator exchange (09/30/2019, 9:05am), chronic systolic CHF with reduced LVEF < 20%, LV severely dilated with normal LV wall thickness, no LV thrombus, severe LA dilation with grade III LV diastolic dysfunction, moderate MR, and moderate pulmonary HTN (as noted on 02/18/2025 TTE, CARDS Mr. Sunday Peralta PA-C) with medication non-compliance (cf., not taking ASA, carvedilol, lisinopril, digoxin on a regular/daily basis), who was admitted to the inpatient hospitalist service @ [facility] on 03/20/2025 with the following diagnosis: 1. Acute exacerbation of chronic systolic CHF with reduced LVEF < 20% and chronic diastolic CHF with grade III LV diastolic dysfunction (as reported on 02/18/2025 TTE, CARDS Mr. Sunday Peralta PA-C). RESOLVING very well on 03/21/2025 and on 03/22/2025 and on 03/23/2025 with patient reporting that he is breathing 90% better today (03/23/2025) than three days ago (03/20/2025) on lasix 20mg IV daily, carvedilol 6.25mg PO bid, digoxin 0.25mg PO qam, empagliflozin 10mg PO qam, lisinopril 10mg PO qam, daily weights, and strict I/O. Patient was subsequently discharged back to his home today, 03/23/2025 on his home-scheduled lasix 20mg PO daily, carvedilol 6.25mg PO bid, digoxin 0.25mg PO qam, empagliflozin 10mg PO qam, lisinopril 10mg PO qam, daily weights, and strict I/O. Given consistently low BP, patient will NOT resume his home- scheduled spironolactone 12.5mg PO qam on hospital discharge home on 03/23/2025. Other secondary medical issues include: 2. Diet-uncontrolled, drug-naive DM2 with HbA1c 11.1% (03/21/2025, 5:50am). cf., glucose 236 mg/dL (03/20/2025, 12:18pm). cf., glucose 240 mg/dL (03/21/2025, 5:50am). cf., glucose 172 mg/dL (03/22/2025, 8:12am). cf., glucose 162 mg/dL (03/22/2025, 12:17pm). cf., glucose 125 mg/dL (03/22/2025, 5:05pm). cf., glucose 131 mg/dL (03/23/2025, 1:03am). Patient received a carbohydrate consistent diet, glimepiride 4mg PO qam, insulin sliding scale qac + qhs, and POC glucose qac + qhs while in [facility]. Patient will continue with carbohydrate consistent diet, glimepiride 4mg PO qam on hospital discharge home on 03/23/2025. Patient will NOT continue with insulin sliding scale qac + qhs, and POC glucose qac + qhs on hospital discharge home on 03/23/2025. 3. Hypotension with BP 83/57 (03/21/2025, 3:44pm). Asymptomatic. Patient reports chronically low BP at home and remains asymptomatic at home and in [facility] with his chronically low BP. I surmise that patient's hypotension is coincident with his chronic systolic CHF with reduced LVEF < 20% and chronic diastolic CHF with grade III LV diastolic dysfunction (as reported on 02/18/2025 TTE, CARDS Mr. Sunday Peralta PA-C). In sum, patient's heart is simply too weak to generate sufficient force and BP remains low. (2) Type II diabetes mellitus: (3) Hypertension: (4) Idiopathic cardiomyopathy: Admission HPI Per Admitting Provider patient is a very pleasant 64-year-old male who notes about a week of progressive and unremitting shortness of breath. He noted about a week ago for starting to feel more short of breath and air hunger, hyperventilation like he could not get enough air. Seems to have more orthopnea, and questionably dyspnea on exertion. No fevers chills or sweats. Weight has been fluctuating and about a 3 to 4 pound range but no overt weight gain. No peripheral edema. He had been off of medications for quite a while, finally was able to follow-up with his primary cardiology team about a month ago and started back on CHF meds. He also relates being sick off and on for a lot of the spring. Discharge Exam Constitutional General: Comfortable, coherent, and cooperative. Wide awake and alert. Not confused, lethargic, or obtunded. Patient speaks in complete, fluent, and articulate sentences without pause, interruption, cough, or wheeze. HEENT: Normocephalic, atraumatic. No nystagmus, gaze paresis, anisocoria, miosis, mydriasis, hyphema, scleral injection, conjunctivitis, or pterygium. No otorrhea or rhinorrhea. No pharyngeal erythema, edema, or discharge. Neck: Supple, no stridor, bruit, goiter, or hepato-jugular reflux. Jugular venous pressure is estimated to be 3 cm above the sternal angle of Loki, which in turn, is 5 cm above the level of the right atrium; with jugular venous pressure estimated to be 8 cm, then, there is no jugular venous distention on 03/23/2025. Lymphatics: No cervical (anterior/posterior), supraclavicular, infraclavicular, axillary, epitrochlear, or inguinal adenopathy. Chest: Symmetric rise and fall with respirations. Non-tender to palpation. Lungs: Clear to auscultation and percussion. Heart: Regular rate and rhythm. S1 and S2 noted. No S3 or S4 summation gallop. No tripartite friction rub. Grade II/ early systolic murmur @ LLSB without radiation to the carotids, axilla, or back, and which remains invariant in regards to the respiratory cycle. Abdomen: Soft, non-tender, non-distended. No rebound, guarding, Lin's sign, or organomegaly. Bowel sounds auscultated in all 4 quadrants. Extremities: No clubbing, cyanosis. 2+ pitting pedal edema with extension to the bilateral mid-shins, sparing the bilateral upper shins, knees, hips, thighs, abdomen. 2+ pedal pulses bilaterally. Skin: No decubitus ulcer, exanthem, or enanthem. Genito-urinary: No urethral discharge. No alston catheter. Neurology: Alert and oriented in regards to person, place, time, and situation. DTR+ and symmetric. 5/5 motor strength in all 4 extremities, both proximally and distally. No pronator drift. No facial droop. No dysarthria. Psychiatry: No homicidal ideation. No suicidal ideation. No flat affect; smiles appropriately. Discharge Plan Discharge Items Patient Disposition: Home - Self-Care Reason For Visit: DECOMPENSATED CHF Discharge Diagnosis: Acute exacerbation of chronic systolic CHF with reduced LVEF < 20% and chronic diastolic CHF with grade III LV diastolic dysfunction (as reported on 02/18/2025 TTE, CARDS Mr. Sunday Peralta PA-C). Condition on Discharge: Fair Activity: Resume your previous activity Lifting: Gradually increase as tolerated Bathing: No limitations Sexual Activity: When tolerated Driving/Machine Use: No limitations Weightbearing: Full weightbearing Non-emergency contact: Primary Care Provider Call non-emergency contact if: you have any medication questions Follow-up/Referrals: Jazmin Ariza MD [Primary Care Provider] - Diet: Heart Healthy Addtl Attending Provider Instructions: See your PCP Dr. Jazmin Ariza within 5 days of hospital discharge. Pending Studies at Discharge: No Stand-Alone Forms: My [employer], Smoking Cessation Medications and DC Order Prescriptions: New atorvastatin 40 mg Tablet 40 mg PO DAILY Qty: 30 0RF carvedilol 6.25 mg Tablet 6.25 mg PO BID Qty: 60 0RF glimepiride 2 mg Tablet 4 mg PO QAM Qty: 30 0RF lisinopril 10 mg Tablet 10 mg PO QAM Qty: 30 0RF digoxin [Digitek] 125 mcg (0.125 mg) Tablet 0.125 mg PO QAM Qty: 30 0RF Jardiance 10 mg Tablet 10 mg PO QAM Qty: 30 0RF Continued (DME) blood-glucose meter [OneTouch Verio Meter] [facility] [place] Rx Instructions .Route Qty: 1 0RF Rx Instructions: Test BID, fasting glucose in AM, and before evening meal (DME) OneTouch Verio test strips Strip See Rx Instructions .Route Qty: 100 3RF Rx Instructions: Test glucose BID, fasting AM and before evening meal (DME) lancets [OneTouch UltraSoft Lancets] [facility] [place] See Rx Instructions .Route Qty: 100 3RF Rx Instructions: Test glucose BID, fasting AM and before evening meal aspirin 81 mg Tablet,Chewable 81 mg PO QAM furosemide 20 mg tablet 20 mg PO QAM atorvastatin 40 mg tablet 40 mg PO QAM Discontinued spironolactone 25 mg tablet 12.5 mg PO QAM metoprolol succinate 25 mg tablet extended release 24 hr 12.5 mg PO QAM Discharge Orders: Discharge Order (Routine); Ordered 03/23/25 Ordered By: Bernardino Goff Discharge Order- CHF (Routine); Ordered 03/23/25 Ordered By: Bernardino Goff Admission Data Admit Date/Time: 03/20/25 14:20 Attending Provider: Bernardino Goff Admit Provider: Frank Salazar Primary Care Provider: Jazmin Ariza Other Providers: Frank Salazar Hospital Stay Data Consultations 03/20/25 13:45 ED Decision to Admit Stat Pending Results Patient Have Any Pending Studies at Discharge: No Discharge Instructions Given to Patient (Per Discharging Provider) See your PCP Dr. Jazmin Ariza within 5 days of hospital discharge. Total Time Total Time Spent Total Time Spent (In Minutes): 35 minutes. Of this time period, 19 minutes were spent in coordinating patient's discharge. Coding Level of Care Code 12049 INP/OBS DISCH >30 MIN Diagnoses CHF (congestive heart failure), NYHA class III I50.9 Congestive heart failure type: unspecified Type II diabetes mellitus E11.9 Hypertension I10 Idiopathic cardiomyopathy I42.8
== END 2025-03-23 10:14 | disposition home or self-care (01) | DRG 291 ==
LOC: ED 11:37 → 2N 14:20 → SUATTDRO 14:20 → 2N 15:44